=== PATIENT | male | born 1980 | race Caucasian/White ===

== ENCOUNTER 2019-04-12 13:33 | Inpatient (IN) | payer MEDICAID, SELFPAY ==
[2019-04-12 13:34] VITALS: BP 157/79; PULSE 90; RESP 18; TEMP 36.7; O2SAT 95; BMI 26.0
--- NOTE | 2019-04-12 13:34 | ED_ITS ---
Entered by Leslie Rea, acting as scribe for Joya Cedillo MD HPI - Psych General: Chief Complaint: Psychiatric Symptoms Stated Complaint: SI THOUGHTS Time Seen by Provider: 04/12/19 13:33 Source: patient and EMS Mode of arrival: EMS Limitations: no limitations History of Present Illness: HPI Narrative: 38 yo male presents with depression and SI thoughts. pt states this started a few days ago. pt states 2 weeks he layed his mother to rest. pt had a recent divorce. pt states he had a rope this morning planned to hang himself but realized he needed help for his children. pt states he has not been eating due to the stress. pt states nothing make this better. pt states he has been off his medications and never went back on them. complaint: suicidal ideation and feels depressed Onset (ago): day(s) Duration: constant and getting worse History of same: Yes Relieving factors: none Exacerbating factors: other (stress, family problems) Context: significant life stressor and other (out of medications) Associated psychiatric symptoms: depression and suicidal ideation Associated symptoms: Reports depression and suicidal ideation Treatments prior to arrival: none If self harm: admits thoughts of self harm and has plan (hang himself) Review of Systems General: Reports: 10 or more systems reviewed and unremarkable except in HPI and below Const: Denies: fever or chills Eyes: Denies: change in vision ENMT: Denies: throat pain Card: Denies: chest pain Resp: Denies: shortness of breath GI: Denies: abdominal pain, nausea, vomiting or change in bowel habits Musc: Denies: muscle weakness Skin/Breast: Denies: rash Neuro: Denies: headache Psych: Reports: depression and suicidal ideation Endo: Denies: excessive urination Bonifacio/Lymph: Denies: easy bruising or easy bleeding All/Imm: Denies: hives PFSH ED PFSH: Social History Smoking and tobacco status: current every day smoker Physical Exam Const: COMMON NORMALS: no apparent distress, oriented x3, alert and well nourished HENMT: COMMON NORMALS: normocephalic and external nose normal HEAD & SCALP: normocephalic NOSE: external nose normal MOUTH: no trismus Eye: COMMON NORMALS: EOMs intact bilaterally and conjunctivae normal CONJUNCTIVA: Yes conjunctivae normal Neck/C-Spine: COMMON NORMALS: full ROM, no lymphadenopathy and supple CERVICAL SPINE: Yes cervical ROM normal Lymph: LYMPHATIC: no lymphadenopathy noted Resp: COMMON NORMALS: normal respiratory effort, no retractions, no use of accessory muscles and clear to auscultation bilaterally EFFORT & INSPECTION: Yes able to speak in complete sentences AUSCULTATION: clear to auscultation bilaterally Cardio: COMMON NORMALS: regular rate and regular rhythm RATE: regular rate RHYTHM: regular rhythm GI: COMMON NORMALS: normal to inspection, nondistended, normoactive bowel sounds, soft to palpation, non-tender and no masses INSPECTION: Yes normal to inspection AUSCULTATION: Yes normoactive bowel sounds PALPATION: Yes soft, No guarding and No rigid Back/Pelvis: OTHER: Normal range of motion Extremity: GENERAL: Yes normal exam except as noted Neuro: COMMON NORMALS: oriented x3 and CN's II-XII intact bilaterally SENSORIUM/ORIENTATION: Yes alert SPEECH: speech normal Skin: COMMON NORMALS: no rashes or lesions noted GENERAL SKIN EXAM: no rashes or lesions noted MDM - Psych MDM Narrative: Medical decision making narrative: 38-year-old male with suicidal ideation and recent loss of his mother 2 weeks ago. Voluntarily once hospitalization plan was to hang himself. He is medically stable. Discussed with Dr. Amaral who accepts patient admission to the Neuropsych Unit. Lab Data: Attestation: I reviewed the patient's lab results. Labs: Lab Results 04/12/19 04/12/19 04/12/19 Range/Units 13:58 14:05 14:05 WBC 6.8 (4.0-10.0) 10^3/ uL RBC 4.87 (4.1-5.3) 10^6/u L Hgb 14.0 (11.7-16.6) g/dL Hct 41.9 L (42.0-52.0) % MCV 86.0 (80-94) fL MCH 28.7 (28.0-34.0) pg MCHC 33.4 (30.0-36.0) g/dL RDW 12.5 (12.1-15.1) % Plt Count 322 (130-400) 10^3/c mm MPV 8.8 (7.4-10.4) fL Neut % (Auto) 63.1 % Lymph % (Auto) 24.1 % [place] % (Auto) 8.7 % Eos % (Auto) 3.2 % Baso % (Auto) 0.6 % Neut # (Auto) 4.3 (1.8-7.7) 10^3/u L Lymph # (Auto) 1.6 (0.8-4.8) 10^3/u L [place] # (Auto) 0.6 (0.2-0.9) 10^3/u L Eos # (Auto) 0.2 (0.0-0.8) 10^3/u L Baso # (Auto) 0.0 (0.0-0.1) 10^3/u L Nucleated RBC % (a uto) 0 % Nucleated RBCs # 0.0 /100WBC Sodium 138 (136-145) mmol/L Potassium 4.1 (3.5-5.1) mmol/L Chloride 99 (98-107) mmol/L Carbon Dioxide 28 (22-29) mmol/L Anion Gap 15.1 (5-19) BUN 16 (6-20) mg/dL Creatinine 1.1 (0.7-1.2) mg/dL GFR Calculation 74.1 L (90-130) mL/min Glucose 80 (65-115) mg/dL Calcium 10.0 (8.5-10.5) mg/dL Total Bilirubin 1.4 H (0.15-1.2) mg/dL AST 20 (0-40) U/L ALT 19 (0-41) U/L Alkaline Phosphata se 96 (40-130) IU/L Total Protein 7.3 (6.6-8.7) g/dL Albumin 4.7 (3.5-5.2) g/dL Globulin 2.6 (1.3-4.6) g/dL Urine Opiates Scre en Negative (Negative) ng/mL Ur Barbiturates Sc reen Negative (Negative) ng/mL Ur Phencyclidine S crn Negative (Negative) ng/mL Ur Amphetamines Sc reen Positive H (Negative) ng/mL U Benzodiazepines Scrn Negative (Negative) ng/mL Urine Cocaine Scre en Negative (Negative) ng/mL U Marijuana (THC) Screen Positive H (Negative) ng/mL Ethyl Alcohol < 10 (0-10) mg/dL Discharge Plan Discharge Condition: Stable Prescriptions: No Action Celexa 40 mg Tablet 40 mg PO DAILY RF: 0 prazosin 1 mg Capsule 1 mg PO QPM RF: 0 clonazepam 0.5 mg Tablet 0.5 mg PO TID PRN (Reason: Anxiety) RF: 0 Depakote ER 500 mg Tablet Extended Release 24 Hr 500 mg PO DAILY RF: 0 Coding Level of Care Code ED [facility] Agent for Chg Fwd Exam Comprehensive The documentation recorded by the Álvaro hadley Bridget Annette, accurately reflects the service I personally performed and the decisions made by Mamadou seth Megan, MD Apr 12, 2019 13:33
[2019-04-12 13:56] VITALS: O2SAT 100
[2019-04-12] MEDS: LORazepam 1 mg Tablet PO (14:02)
[2019-04-12 14:16] LABS: Basophils % 0.6 %; Eosinophils # 0.2 10^3/uL (0.0-0.8); Eosinophils % 3.2 %; Hematocrit 41.9 % (42.0-52.0); Lymphocytes # 1.6 10^3/uL (0.8-4.8); Lymphocytes % 24.1 %; Mean Corpuscular HGB Conc 33.4 g/dL (30.0-36.0); Mean Corpuscular Hemoglobin 28.7 pg (28.0-34.0); Mean Platelet Volume 8.8 fL (7.4-10.4); Monocytes # 0.6 10^3/uL (0.2-0.9); Monocytes % 8.7 %; Neutrophils # 4.3 10^3/uL (1.8-7.7); Neutrophils % 63.1 %; Nucleated Red Blood Cells % 0 %; Platelet Count 322 10^3/cmm (130-400); Red Blood Count 4.87 10^6/uL (4.1-5.3); Red Cell Distribution Width 12.5 % (12.1-15.1); White Blood Count 6.8 10^3/uL (4.0-10.0)
[2019-04-12 14:43] LABS: Barbiturates Screen Urine Negative (Negative); Benzodiazepines Screen Urine Negative (Negative); Cocaine Screen Urine Negative (Negative); Opiate Screen Urine Negative (Negative); PCP Screen Urine Negative (Negative); THC Screen Urine Positive (Negative)
[2019-04-12 14:43] LABS: Alanine Aminotransferase 19 U/L (0-41); Albumin Level 4.7 g/dL (3.5-5.2); Alkaline Phosphatase 96 IU/L (40-130); Anion Gap 15.1 (5-19); Aspartate Amino Transferase 20 U/L (0-40); Blood Urea Nitrogen 16 mg/dL (6-20); Carbon Dioxide 28 mmol/L (22-29); Chloride 99 mmol/L (98-107); Creatinine Clr Calc Pharmacy 99.8848; Globulin 2.6 g/dL (1.3-4.6); Glomerular Filtration Rate 74.1 mL/min (90-130); Glucose 80 mg/dL (65-115); Potassium 4.1 mmol/L (3.5-5.1); Sodium 138 mmol/L (136-145); Total Bilirubin 1.4 mg/dL (0.15-1.2); Total Protein 7.3 g/dL (6.6-8.7)
[2019-04-12 14:44] LABS: Alcohol Level < 10 mg/dL (0-10)
[2019-04-12 14:59] LABS: Amphetamines Screen Urine Positive (Negative)
[2019-04-12 18:21] VITALS: BP 145/88; PULSE 85; RESP 17; O2SAT 97
[2019-04-12 18:43] VITALS: BP 130/79; PULSE 86; RESP 17; TEMP 36.8; O2SAT 95
--- NOTE | 2019-04-12 21:06 | PC.NURSE ---
HOME MEDS [PT HAS NOT BEEN TAKING HOME MEDS. PER DR. NUNEZ HE IS NOT GOING TO RESTART THOSE MEDS TONIGHT. HE IS GOING TO LET DR. HUMPHREY DECIDE WHAT TO DO.
[2019-04-12 21:18] VITALS: BP 137/77; PULSE 85; RESP 17; TEMP 36.8; O2SAT 98
[2019-04-13 06:00] VITALS: BP 105/69; PULSE 75; RESP 16; TEMP 36.8; O2SAT 97
[2019-04-13] MEDS: LORazepam 1 mg Tablet PO (10:08)
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
[2019-04-13 14:00] VITALS: BP 118/77; PULSE 73; RESP 18; TEMP 36.7; O2SAT 97
[2019-04-13] MEDS: citalopram 20 mg Tablet PO (14:22)
[2019-04-13] MEDS: CLONazepam 0.5 mg Tablet PO (14:46)
--- NOTE | 2019-04-13 14:46 | PC.NURSE ---
Addendum entered by Alexandrea Rao LPN 04/13/19 15:32: MEDICATION EFFECTIVE. PATIENT IS LYING IN BED RESTING. RESPIRATIONS EVEN AND UNLABORED. Original Note: PRN KLONOPIN KLONOPIN 0.5MG PO PER PT C/O ANXIETY. WILL CONTINUE TO MONITOR FOR MEDICATION EFFECTIVENESS.
[2019-04-13] MEDS: prazosin 1 mg Capsule PO (20:41)
[2019-04-13] MEDS: divalproex ER 500 mg Tablet (24H) PO (20:41)
[2019-04-13 21:58] VITALS: BP 109/67; PULSE 84; RESP 17; TEMP 36.8; O2SAT 96
[2019-04-14 06:00] VITALS: BP 108/71; PULSE 70; RESP 16; TEMP 36.7; O2SAT 96
[2019-04-14] MEDS: CLONazepam 0.5 mg Tablet PO ×2 (07:49→15:50)
--- NOTE | 2019-04-14 07:49 | PC.NURSE ---
PRN KLONOPIN KLONOPIN 0.5MG PO PER PATIEN C/O ANXIETY. WILL CONTINUE TO MONITOR FOR MEDICATION EFFECTIVENESS.
[2019-04-14] MEDS: citalopram 20 mg Tablet PO (08:01)
[2019-04-14] MEDS: nicotine 2 mg Gum BUCCAL (08:30)
--- NOTE | 2019-04-14 09:00 | PC.NURSE ---
PRN KLONOPIN FOLLOW UP MEDICATION EFFECTIVE. NO FURTHER C/O ANXIETY. PATIENT SITTING IN THE DAYROOM TALKING WITH OTHER PATIENTS.
[2019-04-14 14:00] VITALS: BP 100/50; PULSE 74; RESP 18; TEMP 36.7; O2SAT 97
--- NOTE | 2019-04-14 14:54 | P.PN_ITS ---
Subjective NPU Subjective: Interval history: Paco presents today reporting that things are going a little bit better. Made an adjustment in the medication and he feels that that should be helpful. Being restarted on his medication he reports is made difference. We had discussion about this plan moving forward. Managed his challenges and where he is going to go. He has been making calls and attempting to create options. At this point he believes he has a possibility. We discussed a discharge for tomorrow in the event that he is able to get the arrangements together and adjust to the medication without incident. Mental Status Exam MSE Comments: This is a well-nourished well-developed white male with adequate dress grooming contact. No abnormal movements except for mild psychomotor ret ardation. Cooperative with exam in no acute distress. Speech was slightly decreased rate and volume. Mood described as a little better, affect congruent. Thought process organized. Thought content: Patient denied any suicidal or homicidal ideation, there were no delusions reported noted, he denied any auditory or visual hallucinations. Attention and concentration were intact and memory appeared reliable but none were formally tested. He is alert and oriented ?3. Insight and judgment are fair and improving. Vitals/I&O/Wt Last Vital Signs Temp 98.1 F 04/14/19 06:00 Pulse 70 04/14/19 06:00 Resp 16 04/14/19 06:00 BP 108/71 04/14/19 06:00 Pulse Ox 96 04/14/19 06:00 Data NPU : 04/12/19 14:05 04/12/19 14:05 A&P Additional A&P Information This is a 38-year-old white male with a long history of depression anxiety and recent bereavement who presents off this medication with recent suicidal thinking presenting with desire in getting his medication restarted. 1. Continue current medication. 2. Encourage individual, group and milieu therapy. 3. Continue every 15 minute checks for safety. 4. Assist in exploring resources that help with ID. (2) Major depressive disorder, recurrent severe without psychotic features: Involuntary Hold Information 96 Hour Hold: 96 Hour Involuntary Admission: No Attestations NPU Medical Necessity Statement*: Inpatient hospitalization is medically necessary and the clinically appropriate intervention at this time. We will continue medications and adjust as indicated. Likely length of stay 1-3 days. Coding Level of Care Code Acute Poacher Wringer Operator for Lenore Coleman
--- NOTE | 2019-04-14 15:51 | PC.NURSE ---
PRN KLONOPIN KLONOPIN 0.5 MG PO PER PATIENT C/O ANXIETY. WILL CONTINUE TO MONITOR FOR MEDICATION EFFECTIVENESS.
--- NOTE | 2019-04-14 17:00 | PC.NURSE ---
prn klonopin follow up medication effective. no further c/o anxiety.
[2019-04-14] MEDS: divalproex ER 500 mg Tablet (24H) PO (20:49)
[2019-04-14] MEDS: prazosin 1 mg Capsule PO (20:49)
[2019-04-14 21:43] VITALS: BP 95/56; PULSE 87; RESP 17; TEMP 36.8; O2SAT 96
[2019-04-15 06:00] VITALS: BP 138/88; PULSE 89; RESP 20; TEMP 36.8; O2SAT 94
[2019-04-15] MEDS: citalopram 20 mg Tablet PO (08:15)
[2019-04-15] MEDS: CLONazepam 0.5 mg Tablet PO (08:15)
--- NOTE | 2019-04-15 08:15 | PC.NURSE ---
PT REQUESTED PRN CLONAZEPAM FOR INCREASED ANXIETY. ADMINISTERED MEDICATION ORDERED. WILL CONT TO MONITOR AND FOLLOW UP NEEDED
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
[2019-04-15 13:39] VITALS: BP 138/88; PULSE 89; RESP 20; TEMP 36.8; O2SAT 94
== END 2019-04-15 14:11 | disposition home or self-care (01) | DRG 885 ==
LOC: ER 16:19 → NP 18:19
PROVIDERS: Emergency Provider Emergency Medicine
DX: F33.2 Major depressive disorder, recurrent severe without psychotic features (principal); Z63.4 Disappearance and death of family member; Z91.5 Personal history of self-harm; F17.210 Nicotine dependence, cigarettes, uncomplicated
CPT/HCPCS: 12345; 36415; 80053; 80306; 80307; 85025; 99284; 99285; A9270

== ENCOUNTER 2019-06-14 13:08 | Inpatient (IN) | payer MEDICAID, SELFPAY ==
[2019-06-14 13:12] VITALS: BP 124/53; PULSE 71; RESP 17; TEMP 36.8; O2SAT 98; BMI 26.0
[2019-06-14] MEDS: LORazepam 1 mg Tablet PO (13:45)
--- NOTE | 2019-06-14 13:45 | ED_ITS ---
HPI - Psych General: Chief Complaint: Psychiatric Symptoms Stated Complaint: MHE Time Seen by Provider: 06/14/19 13:19 Source: patient Mode of arrival: ambulatory Limitations: no limitations History of Present Illness: HPI Narrative: 38-year-old gentleman with a history of depression who presents to the emergency department with worsening depression and suicidal ideation. The patient states that he recently traveled about 2 weeks ago for vacation and he forgot his medications at that place, the medications include antidepressants and mood stabilizers. He was unable to retrieve them and his depression has been worsening. He is also undergoing a lot of social stressors including a custody bertrand for his children and he feels it is all weighing on him and he is unable to cope at this time. He is apparently very irritable and emotional. He is tearful and crying throughout my interview. He is having suicidal ideations and his plan is to hang himself. No homicidal ideations. He presents here requesting to be helped. MD complaint: suicidal ideation and feels depressed Onset (ago): week(s) (1) Duration: constant History of same: Yes Context: not taking psychiatric medications and significant life stressor Associated psychiatric symptoms: depression and suicidal ideation Treatments prior to arrival: none If self harm: admits thoughts of self harm and has plan Review of Systems General: Reports: 10 or more systems reviewed and unremarkable except in HPI and below Const: Denies: fever, chills or body aches Card: Denies: palpitations, irregular heart rhythm, edema or swelling of feet/ankles Resp: Denies: shortness of breath, productive cough or non-productive cough GI: Denies: abdominal pain, nausea or vomiting : Denies: flank pain, painful urination, urinary frequency, urinary urgency or urinary hesitancy Musc: Denies: neck pain, back pain or extremity swelling Skin/Breast: Denies: rash, itching or redness Neuro: Denies: headache, numbness in extremities or weakness in extremities Endo: Denies: excessive urination, excessive thirst or tired all the time PFS ED PFSH: Social History Smoking and tobacco status: current some day smoker Physical Exam Const: COMMON NORMALS: no apparent distress, average body habitus, oriented x3, no limitations, healthy appearing, alert and well nourished HENMT: COMMON NORMALS: normocephalic, head/scalp atraumatic and moist oral mucous membranes HEAD & SCALP: normocephalic and atraumatic Eye: COMMON NORMALS: PERRL, EOMs intact bilaterally, conjunctivae normal and no scleral icterus CONJUNCTIVA: Yes conjunctivae normal PUPIL: Yes PERRL Neck/C-Spine: COMMON NORMALS: full ROM, supple, no meningeal signs, no JVD and no carotid bruits Chest: COMMONS NORMALS: inspection of chest normal and palpation of chest normal Resp: COMMON NORMALS: normal respiratory effort, no retractions, no use of accessory muscles, clear to auscultation bilaterally and percussion normal AUSCULTATION: clear to auscultation bilaterally PERCUSSION: percussion normal Cardio: COMMON NORMALS: no JVD, regular rate, regular rhythm, S1 normal heart sound, S2 normal heart sound, no gallops, no clicks, no murmurs, no rub and peripheral pulses 2+ throughout RATE: regular rate RHYTHM: regular rhythm HEART SOUNDS: S1 normal and S2 normal PERIPHERAL PULSES: pulses 2+ througho ut GI: COMMON NORMALS: normal to inspection, nondistended, normoactive bowel sounds, soft to palpation, non-tender, no hepatosplenomegaly, no masses and no bruits PALPATION: Yes soft and Yes no hepatosplenomegaly : COMMON NORMALS: Yes no CVA tenderness BLADDER/KIDNEY EXAM: Yes no CVA tenderness Back/Pelvis: COMMON NORMALS: no CVA tenderness Extremity: COMMON NORMALS: normal to inspection, full ROM, normal capillary refill, no calf tenderness and no pedal edema Neuro: COMMON NORMALS: oriented x3 SENSORIUM/ORIENTATION: Yes alert MENINGEAL SIGNS: Yes no meningeal signs Psych: COMMON NORMALS: mental status grossly normal and denies homicidal ideation APPEARANCE: Yes grossly normal ATTITUDE: Yes calm ACTIVITY/MOTOR BEHAVIOR: Yes psychomotor slowing SPEECH: Yes slow MOOD & AFFECT: Yes depressed mood and Yes tearful Skin: COMMON NORMALS: no rashes or lesions noted, no wounds, skin turgor normal, no jaundice, no petechiae and no mottling GENERAL SKIN EXAM: no rashes or lesions noted and turgor normal MDM - Psych MDM Narrative: Medical decision making narrative: 38-year-old gentleman with a history of depression who presents to the emergency department with complaints of suicidal ideation and worsening depression. He was medically cleared and is admitted to the neuropsychiatric unit for further evaluation and management. Lab Data: Labs: Lab Results 06/14/19 06/14/19 06/14/19 Range/Units 13:28 13:37 13:37 WBC 6.1 (4.0-10.0) 10^3/ uL RBC 4.84 (4.1-5.3) 10^6/u L Hgb 14.1 (11.7-16.6) g/dL Hct 42.8 (42.0-52.0) % MCV 88.4 (80-94) fL MCH 29.1 (28.0-34.0) pg MCHC 32.9 (30.0-36.0) g/dL RDW 12.2 (12.1-15.1) % Plt Count 331 (130-400) 10^3/c mm MPV 9.0 (7.4-10.4) fL Neut % (Auto) 58.0 % Lymph % (Auto) 29.9 % [place] % (Auto) 8.2 % Eos % (Auto) 3.0 % Baso % (Auto) 0.7 % Neut # (Auto) 3.5 (1.8-7.7) 10^3/u L Lymph # (Auto) 1.8 (0.8-4.8) 10^3/u L [place] # (Auto) 0.5 (0.2-0.9) 10^3/u L Eos # (Auto) 0.2 (0.0-0.8) 10^3/u L Baso # (Auto) 0.0 (0.0-0.1) 10^3/u L Nucleated RBC % (a uto) 0 % Nucleated RBCs # 0.0 /100WBC Sodium 138 (136-145) mmol/L Potassium 4.3 (3.5-5.1) mmol/L Chloride 100 (98-107) mmol/L Carbon Dioxide 31 H (22-29) mmol/L Anion Gap 11.3 (5-19) BUN 11 (6-20) mg/dL Creatinine 1.1 (0.7-1.2) mg/dL GFR Calculation 74.1 L (90-130) mL/min Glucose 95 (65-115) mg/dL Calculated Osmolal ity 282 L (285-295) mOsm/k g Calcium 9.7 (8.5-10.5) mg/dL Total Bilirubin 0.7 (0.15-1.2) mg/dL AST 16 (0-40) U/L ALT 13 (0-41) U/L Alkaline Phosphata se 76 (40-130) IU/L Total Protein 7.0 (6.6-8.7) g/dL Albumin 4.3 (3.5-5.2) g/dL Globulin 2.7 (1.3-4.6) g/dL TSH 0.84 (0.27-4.20) uIU/ mL Urine Color (Yellow) Urine Appearance (CLEAR) Urine pH (5-7) Ur Specific Gravit y (1.005-1.030) Urine Protein (Negative) Urine Glucose (UA) (Normal) Urine Ketones (Negative) Urine Blood (Negative) Urine Nitrate (Negative) Urine Bilirubin (NEGATIVE) Urine Urobilinogen (Negative) mg/dL Ur Leukocyte Mary ase (Negative) Salicylates < 0.3 L (3-10) mg/dL Urine Opiates Scre en Negative (Negative) ng/mL Acetaminophen < 5.0 L (10-30) ug/mL Ur Barbiturates Sc reen Negative (Negative) ng/mL Ur Phencyclidine S crn Negative (Negative) ng/mL Ur Amphetamines Sc reen Positive H (Negative) ng/mL U Benzodiazepines Scrn Positive H (Negative) ng/mL Urine Cocaine Scre en Negative (Negative) ng/mL U Marijuana (THC) Screen Positive H (Negative) ng/mL Ethyl Alcohol < 10 (0-10) mg/dL 06/14/19 Range/Units 13:37 WBC (4.0-10.0) 10^3/ uL RBC (4.1-5.3) 10^6/u L Hgb (11.7-16.6) g/dL Hct (42.0-52.0) % MCV (80-94) fL MCH (28.0-34.0) pg MCHC (30.0-36.0) g/dL RDW (12.1-15.1) % Plt Count (130-400) 10^3/c mm MPV (7.4-10.4) fL Neut % (Auto) % Lymph % (Auto) % [place] % (Auto) % Eos % (Auto) % Baso % (Auto) % Neut # (Auto) (1.8-7.7) 10^3/u L Lymph # (Auto) (0.8-4.8) 10^3/u L [place] # (Auto) (0.2-0.9) 10^3/u L Eos # (Auto) (0.0-0.8) 10^3/u L Baso # (Auto) (0.0-0.1) 10^3/u L Nucleated RBC % (a uto) % Nucleated RBCs # /100WBC Sodium (136-145) mmol/L Potassium (3.5-5.1) mmol/L Chloride (98-107) mmol/L Carbon Dioxide (22-29) mmol/L Anion Gap (5-19) BUN (6-20) mg/dL Creatinine (0.7-1.2) mg/dL GFR Calculation (90-130) mL/min Glucose (65-115) mg/dL Calculated Osmolal ity (285-295) mOsm/k g Calcium (8.5-10.5) mg/dL Total Bilirubin (0.15-1.2) mg/dL AST (0-40) U/L ALT (0-41) U/L Alkaline Phosphata se (40-130) IU/L Total Protein (6.6-8.7) g/dL Albumin (3.5-5.2) g/dL Globulin (1.3-4.6) g/dL TSH (0.27-4.20) uIU/ mL Urine Color Yellow (Yellow) Urine Appearance Clear (CLEAR) Urine pH 7 (5-7) Ur Specific Gravit y 1.015 (1.005-1.030) Urine Protein Neg (Negative) Urine Glucose (UA) Norm (Normal) Urine Ketones Negative (Negative) Urine Blood Neg (Negative) Urine Nitrate Negative (Negative) Urine Bilirubin Neg (NEGATIVE) Urine Urobilinogen Norm (Negative) mg/dL Ur Leukocyte Mary ase Negative (Negative) Salicylates (3-10) mg/dL Urine Opiates Scre en (Negative) ng/mL Acetaminophen (10-30) ug/mL Ur Barbiturates Sc reen (Negative) ng/mL Ur Phencyclidine S crn (Negative) ng/mL Ur Amphetamines Sc reen (Negative) ng/mL U Benzodiazepines Scrn (Negative) ng/mL Urine Cocaine Scre en (Negative) ng/mL U Marijuana (THC) Screen (Negative) ng/mL Ethyl Alcohol (0-10) mg/dL Discharge Plan Discharge Patient Disposition: Admitted As Inpatient Admit Provider: Seng Snowden Clinical Impression: Suicidal ideation, Major depressive disorder, recurrent severe without psychotic features Condition: Stable Interventions: ED Discharge Assessment Last Done: 06/14/19 17:00 ED Charges Last Done: 06/14/19 17:17 Discharge Date/Time: 06/14/19 17:00 Coding Level of Care Code 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
[2019-06-14 13:48] LABS: Basophils % 0.7 %; Eosinophils # 0.2 10^3/uL (0.0-0.8); Hematocrit 42.8 % (42.0-52.0); Hemoglobin 14.1 g/dL (11.7-16.6); Lymphocytes # 1.8 10^3/uL (0.8-4.8); Lymphocytes % 29.9 %; Mean Corpuscular HGB Conc 32.9 g/dL (30.0-36.0); Mean Corpuscular Hemoglobin 29.1 pg (28.0-34.0); Mean Corpuscular Volume 88.4 fL (80-94); Monocytes # 0.5 10^3/uL (0.2-0.9); Monocytes % 8.2 %; Neutrophils # 3.5 10^3/uL (1.8-7.7); Nucleated Red Blood Cells % 0 %; Platelet Count 331 10^3/cmm (130-400); Red Blood Count 4.84 10^6/uL (4.1-5.3); Red Cell Distribution Width 12.2 % (12.1-15.1); White Blood Count 6.1 10^3/uL (4.0-10.0)
[2019-06-14 14:22] LABS: Add Urine Microscopic? NO; Bilirubin Urine Neg (NEGATIVE); Blood Urine Neg (Negative); Glucose Urine UA Norm (Normal); Ketones Urine Negative (Negative); Leukocyte Esterase Urine Negative (Negative); Nitrate Urine Negative (Negative); Protein Urine Neg (Negative); Specific Gravity, Urine 1.015 (1.005-1.030); Urine Appearance Clear (CLEAR); Urine Color Yellow (Yellow); Urobilinogen Urine Norm (Negative); pH Urine 7 (5-7)
[2019-06-14 14:23] LABS: Alanine Aminotransferase 13 U/L (0-41); Albumin Level 4.3 g/dL (3.5-5.2); Alkaline Phosphatase 76 IU/L (40-130); Anion Gap 11.3 (5-19); Aspartate Amino Transferase 16 U/L (0-40); Blood Urea Nitrogen 11 mg/dL (6-20); Calcium 9.7 mg/dL (8.5-10.5); Carbon Dioxide 31 mmol/L (22-29); Chloride 100 mmol/L (98-107); Creatinine Clr Calc Pharmacy 99.8848; Globulin 2.7 g/dL (1.3-4.6); Glomerular Filtration Rate 74.1 mL/min (90-130); Glucose 95 mg/dL (65-115); Osmolality Calculated 282 mOsm/kg (285-295); Potassium 4.3 mmol/L (3.5-5.1); Sodium 138 mmol/L (136-145); Thyroid Stimulating Hormone 0.84 uIU/mL (0.27-4.20); Total Bilirubin 0.7 mg/dL (0.15-1.2)
[2019-06-14 14:38] LABS: Amphetamines Screen Urine Positive (Negative); Barbiturates Screen Urine Negative (Negative); Benzodiazepines Screen Urine Positive (Negative); Cocaine Screen Urine Negative (Negative); Opiate Screen Urine Negative (Negative); PCP Screen Urine Negative (Negative); THC Screen Urine Positive (Negative)
[2019-06-14 14:38] LABS: Salicylate < 0.3 mg/dL (3-10)
[2019-06-14 14:39] LABS: Acetaminophen < 5.0 ug/mL (10-30); Alcohol Level < 10 mg/dL (0-10)
--- NOTE | 2019-06-14 16:53 | NUR.SHIFT ---
Report called to Evelia BAKER in NPU and preparation being made to transfer patient to unit.
[2019-06-14 17:00] VITALS: BP 130/65; PULSE 75; O2SAT 99
[2019-06-14 17:05] VITALS: BP 114/71; PULSE 71; RESP 20; TEMP 36.9; O2SAT 98
[2019-06-14 21:47] VITALS: BP 115/80; PULSE 82; RESP 18; TEMP 36.8; O2SAT 97
[2019-06-15 06:00] VITALS: BP 97/58; PULSE 59; RESP 18; TEMP 36.6; O2SAT 97
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
[2019-06-15 12:44] VITALS: BP 97/58; PULSE 59; RESP 18; TEMP 36.6; O2SAT 97
== END 2019-06-15 15:56 | disposition home or self-care (01) | DRG 885 ==
LOC: ER 13:53 → NP 16:00
PROVIDERS: Admitting Provider Psychiatry & Neurology Psychiatry; Emergency Provider Family Medicine; Visit Provider Psychiatry & Neurology Psychiatry
DX: F33.2 Major depressive disorder, recurrent severe without psychotic features (principal); Z63.4 Disappearance and death of family member; F17.210 Nicotine dependence, cigarettes, uncomplicated; Z59.0 Homelessness
CPT/HCPCS: 12345; 36415; 80053; 80306; 80307; 81003; 84443; 85025; 99284

== ENCOUNTER 2019-06-14 13:08 | Emergency (ER) | payer MEDICAID, SELFPAY | END 2019-06-14 17:00 | disposition admitted as inpatient to this hospital (09) | LOC: ER 06-21 10:13 | PROVIDERS: Emergency Provider Family Medicine | DX: R45.851 Suicidal ideations (principal); F33.2 Major depressive disorder, recurrent severe without psychotic features; F17.210 Nicotine dependence, cigarettes, uncomplicated | CPT/HCPCS: 12345; 36415; 80053; 80306; 80307; 81003; 84443; 85025; 99284; 99285 ==

== ENCOUNTER 2019-09-27 09:59 | Inpatient (IN) | payer MEDICAID, SELFPAY ==
[2019-09-27] VITALS (7 sets, daily range): BP systolic 110–130; BP diastolic 70–83; PULSE 64–74; RESP 14–19; TEMP 36.7–36.8; O2SAT 97–98; BMI 25.7
--- NOTE | 2019-09-27 10:16 | W.ED.PSYCH ---
HPI - Psych General: Chief Complaint: Psychiatric Symptoms Stated Complaint: SI Time Seen by Provider: 09/27/19 10:07 History of Present Illness: HPI Narrative: Patient arrives via ambulance patient is been out of his medications for the last week said his mom is in ICU sons have some problems with him. Patient says he has a history of anxiety but he is got to the point where he just wants to take his life he wants to hang himself just cannot deal with anything anymore and feels very anxious and very down and is looking for some help MD complaint: suicidal ideation and feels depressed Onset (ago): day(s) Duration: constant and getting worse History of same: Yes Relieving factors: none Context: significant life stressor Associated symptoms: Reports depression and suicidal ideation Treatments prior to arrival: none If self harm: admits thoughts of self harm and has plan Review of Systems Const: Denies: fever(s), chills or body aches Eyes: Denies: change in vision or blurry vision ENMT: Denies: throat pain or nasal congestion Card: Denies: chest pain or dyspnea on exertion Resp: Denies: dyspnea, productive cough or non-productive cough GI: Denies: abdominal pain, nausea or vomiting : Denies: difficulty urinating Musc: Denies: extremity pain Skin/Breast: Denies: rash Neuro: Denies: headache(s) Psych: Reports: depression and suicidal ideation Bonifacio/Lymph: Denies: easy bruising PFSH ED PFSH: Social History Smoking and tobacco status: current some day smoker Physical Exam Const: COMMON NORMALS: no acute distress, average body habitus and patient oriented x3 HENMT: COMMON NORMALS: normocephalic HEAD & SCALP: normal to inspection and normocephalic FACE & SINUS: normal facial exam Eye: COMMON NORMALS: conjunctivae normal GENERAL EYE: appearance normal, both eyes and all related structures CONJUNCTIVA: Yes conjunctivae normal Neck/C-Spine: COMMON NORMALS: no JVD Chest: COMMONS NORMALS: normal inspection of the chest Resp: COMMON NORMALS: normal respiratory effort and clear to auscultation bilaterally AUSCULTATION: clear to auscultation bilaterally Cardio: COMMON NORMALS: no JVD, regular rate and regular rhythm RATE: regular rate RHYTHM: regular rhythm GI: COMMON NORMALS: Normal to inspection, nondistended, normoactive bowel sounds present Extremity: COMMON NORMALS: normal to inspection and full ROM Neuro: COMMON NORMALS: patient oriented x3 Psych: COMMON NORMALS: Normal thought process present ATTITUDE: Yes agitated MOOD & AFFECT: Yes depressed mood and Yes anxious THOUGHT PROCESS: Normal thought process present THOUGHT CONTENT: Yes Normal thought content present MDM - Psych MDM Narrative: Medical decision making narrative: Dr. Amaral agrees accept patient Neuropsych Unit Discharge Plan Discharge Prescriptions: No Action ranitidine HCl [Zantac] 150 mg Tablet 150 mg PO DAILY RF: 0 clonazepam 0.5 mg Tablet 0.5 mg PO BID PRN (Reason: Anxiety) 30 Days Qty: 60 RF: 1 citalopram 40 mg tablet 40 mg PO DAILY 30 Days Qty: 30 RF: 1 prazosin 1 mg Capsule 1 mg PO BEDTIME 30 Days Qty: 30 RF: 1 divalproex 500 mg Tablet Extended Release 24 Hr 500 mg PO BEDTIME 30 Days Qty: 30 RF: 1 Coding Level of Care Code ED Plumbing Service Technician for Lenore Fwd Exam Comprehensive
[2019-09-27] MEDS: LORazepam 1 mg Tablet PO (10:35)
[2019-09-27 10:59] LABS: Basophils # 0.1 10^3/uL (0.0-0.1); Basophils % 0.8 %; Eosinophils # 0.2 10^3/uL (0.0-0.8); Eosinophils % 2.3 %; Hematocrit 41.1 % (42.0-52.0); Hemoglobin 13.4 g/dL (11.7-16.6); Lymphocytes # 1.7 10^3/uL (0.8-4.8); Lymphocytes % 23.7 %; Mean Corpuscular HGB Conc 32.6 g/dL (30.0-36.0); Mean Corpuscular Hemoglobin 29.4 pg (28.0-34.0); Mean Corpuscular Volume 90.1 fL (80-94); Mean Platelet Volume 8.8 fL (7.4-10.4); Monocytes # 0.5 10^3/uL (0.2-0.9); Monocytes % 6.4 %; Neutrophils # 4.89 10^3/uL (1.8-7.7); Neutrophils % 66.5 %; Nucleated Red Blood Cells % 0 %; Platelet Count 297 10^3/cmm (130-400); Red Blood Count 4.56 10^6/uL (4.1-5.3); Red Cell Distribution Width 12.7 % (12.1-15.1); White Blood Count 7.4 10^3/uL (4.0-10.0)
[2019-09-27 11:16] LABS: Add Urine Microscopic? YES; Bilirubin Urine Neg (NEGATIVE); Blood Urine Neg (Negative); Glucose Urine UA Norm (Normal); Ketones Urine Negative (Negative); Leukocyte Esterase Urine Negative (Negative); Nitrate Urine Negative (Negative); Protein Urine Neg (Negative); Sulfosalicylic Acid Urine Negative (Negative); Urine Appearance Cloudy (CLEAR); Urine Color Yellow (Yellow); Urobilinogen Urine Norm (Negative); pH Urine 8 (5-7)
[2019-09-27 11:17] LABS: Anion Gap 8.3 (5-19); Blood Urea Nitrogen 7 mg/dL (6-20); Calcium 8.8 mg/dL (8.5-10.5); Carbon Dioxide 31 mmol/L (22-29); Chloride 103 mmol/L (98-107); Glomerular Filtration Rate 67.1 mL/min (90-130); Glucose 98 mg/dL (65-115); Osmolality Calculated 282 mOsm/kg (285-295); Potassium 4.3 mmol/L (3.5-5.1); Sodium 138 mmol/L (136-145)
[2019-09-27 11:17] LABS: Add Urine Culture? No; Amorphous Sediment Urine 3+; Bacteria Urine TRACE; Squamous Epithelial Cell Urine 0-4 (0-5)
[2019-09-27 11:18] LABS: Acetaminophen < 5.0 ug/mL (10-30); Salicylate < 0.3 mg/dL (3-10)
[2019-09-27 11:44] LABS: Amphetamines Screen Urine Negative (Negative); Barbiturates Screen Urine Negative (Negative); Benzodiazepines Screen Urine Positive (Negative); Cocaine Screen Urine Negative (Negative); Opiate Screen Urine Negative (Negative); PCP Screen Urine Negative (Negative); THC Screen Urine Positive (Negative)
[2019-09-27] MEDS: CLONazepam 0.5 mg Tablet PO (21:00)
[2019-09-27] MEDS: prazosin 1 mg Capsule PO (21:01)
[2019-09-27] MEDS: hyDROXYzine 25 mg Capsule 50 MG PO (21:01)
[2019-09-27] MEDS: trazodone 50 mg Tablet PO (21:01)
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
[2019-09-28 06:00] VITALS: BP 106/67; PULSE 68; RESP 20; TEMP 36.4; O2SAT 97
[2019-09-28] MEDS: OLANZapine 5 mg ODT PO ×2 (09:15→16:27)
--- NOTE | 2019-09-28 09:16 | PC.NURSE ---
PRN Zyprexa Zydis 5 MG PO given for anxiety
--- NOTE | 2019-09-28 12:52 | PC.NURSE ---
Patient is not as anxious since receiving Zyprexa Zydis this morning. He is easy to talk to but stays in his room most of the time.
--- NOTE | 2019-09-28 13:53 | PM.NPN ---
Subjective NPU Subjective: Interval history: Paco presents today known to this technical proposal writer from previous hospitalizations, the last of which was in May of this year. He presents reporting suicidality and dealing with recent deaths, recent addictive behavior by a child and relationship issues. His mother is reportedly in the ICU and he endorses that his mindset was that the answer to the stress was for him to hang himself. He was seen by Dr. Amaral yesterday and his medications were restarted. He denies any problems with the Prazosin and Dr. Amaral did give him access to Klonopin as needed. We discussed the risks, benefits, and alternatives of restarting his Celexa and he said he needed to think about that, and that we would consider doing that versus switching to a new one by the morning. We discussed concerns about the fact that the Klonopin that is being taken and is being restarted, but that the medications are more appropriate for long-term treatment of anxiety are not on the table. He understood and agreed to proceed as is documented in this note. Mental Status Exam MSE Comments: This is a well-nourished, well-developed, white male, with adequate grooming, and eye contact in hospital scrubs. Cooperative with exam in mild distress. Speech was decreased rate and volume. Mood described as depressed; affect congruent. Thought process, organized. Thought content: patient did endorse suicidality. There were no delusions reported or noted, patient denied any auditory or visual hallucinations. Attention, concentration, and memory appeared intact but were not formally tested. Alert and oriented times three. Insight and judgment are limited, and impulse control is limited. Vitals/I&O/Wt Last Vital Signs Temp 98.7 F 09/28/19 21:53 Pulse 58 L 09/28/19 21:53 Resp 16 09/28/19 21:53 BP 108/60 09/28/19 21:53 Pulse Ox 96 09/28/19 21:53 Weight last 48 hrs Weight 83.915 kg Weight 83.915 kg Data NPU : 09/27/19 10:50 09/27/19 10:50 A&P Assessment and plan (1) Major depressive disorder, recurrent severe without psychotic features: Status: Acute (2) Bereavement: Status: Acute Additional A&P Information This is a 38 year old, white male, with long history of depression, anxiety, and addiction, who presented this time with no methamphetamine in his system, but did have marijuana, as he generally does, who presents endorsing a need to get stabilized in his thinking due to suicidal thoughts with a plan. Continue current medications. We will start some SSRI or antidepressant by the morning. Encourage individual, group, and milieu therapy. Continue q-15 minute checks for safety. Recommend sober living treatment at the highest level of care to which the patient is willing to commit. Involuntary Hold Information 96 Hour Hold: 96 Hour Involuntary Admission: No Attestations NPU Medical Necessity Statement*: Inpatient hospitalization is medically necessary and the clinically appropriate intervention at this time. We will monitor medications, add medications, and make changes as indicated. Likely length of stay two to four days. Coding Level of Care Code Acute Retail Stock Clerk for Lenore Coleman Diagnoses Major depressive disorder, recurrent severe without psychotic features F33.2 Bereavement Z63.4
[2019-09-28 14:00] VITALS: BP 97/62; PULSE 62; RESP 20; TEMP 36.9; O2SAT 97
--- NOTE | 2019-09-28 14:49 | PC.NURSE ---
PRN'S GIVEN ATIVAN 2MG PO GIVEN FOR ANXIETY AND WITHDRAWL bENEDRYL 50MG PO GIVEN FOR ITCHING D/T REACTION
--- NOTE | 2019-09-28 16:28 | PC.NURSE ---
PRN Zyprexa Zydis 5MG PO given for anxiety
[2019-09-28] MEDS: trazodone 50 mg Tablet PO (21:35)
[2019-09-28] MEDS: prazosin 1 mg Capsule PO (21:35)
[2019-09-28] MEDS: CLONazepam 1 mg Tablet 0.5 MG PO (21:36)
[2019-09-28] MEDS: hyDROXYzine 25 mg Capsule 50 MG PO (21:36)
[2019-09-28 21:53] VITALS: BP 108/60; PULSE 58; RESP 16; TEMP 37.1; O2SAT 96
[2019-09-29 06:00] VITALS: BP 98/61; PULSE 81; RESP 20; TEMP 36.5; O2SAT 96
[2019-09-29] MEDS: OLANZapine 5 mg ODT PO (09:30)
--- NOTE | 2019-09-29 09:31 | PC.NURSE ---
PRN Zyprexa Zydis 5MG PO given for anxiety. Patient just spoke to his girlfriend whose health is declining in ICU. She just found out that she would need a pacemaker and that her kidneys are continuing to shut down. He is stressed about his mother and his girlfriend and his son continuing to act out.
--- NOTE | 2019-09-29 11:34 | PC.RESP ---
Smoking Cessation information sent to patient.
--- NOTE | 2019-09-29 13:48 | P.PN_ITS ---
Subjective NPU Subjective: Interval history: Paco presents today reporting that he had been off of his medication for a couple weeks after going to [place] and being with his mother. He did not get a chance to refill his medication which led to him being off of it. We discussed the risks benefits and alternatives of restarting the however he wasn't sure if he wanted to restart all of them. He agreed that he would think about it and we will get all restarted by tomorrow. I plan for discharge if he is stable on Wednesday. He is eating better and sleeping okay. Mental Status Exam MSE Comments: This is a well-nourished, well-developed, white male, with adequate grooming, and eye contact in hospital scrubs. Cooperative with exam in no acute distress. Speech was normal rate and decreased volume. Mood described as depressed; affect congruent. Thought process, organized. Thought content: p atient did endorse resolving suicidality. There were no delusions reported or noted, patient denied any auditory or visual hallucinations. Attention, concentration, and memory appeared intact but were not formally tested. He was alert and oriented times three. Insight and judgment are limited, and impulse control is limited. Vitals/I&O/Wt Last Vital Signs Temp 98.2 F 09/29/19 21:12 Pulse 63 09/29/19 21:12 Resp 20 H 09/29/19 21:12 BP 103/61 09/29/19 21:12 Pulse Ox 97 09/29/19 21:12 Data NPU : 09/27/19 10:50 09/27/19 10:50 A&P Additional A&P Information (1) Major depressive disorder, recurrent severe without psychotic features: (2) Bereavement: This is a 38 year old, white male, with long history of depression, anxiety, and addiction, who presented this time with no methamphetamine in his system, but did have marijuana, as he generally does, who presents endorsing a need to get stabilized in his thinking due to suicidal thoughts with a plan. Continue current medications. Planning on restarting the Celexa a plan to discharge on the previous dose of 40 but we will start 20 mg. We will explore his other medications as reconsidered whether he was to continue with his full previous dosing. Encourage individual, group, and milieu therapy. Continue q-15 minute checks for safety. Recommend sober living treatment at the highest level of care to which the patient is willing to commit. Involuntary Hold Information 96 Hour Hold: 96 Hour Involuntary Admission: No Attestations NPU Medical Necessity Statement*: Inpatient hospitalization is medically necessary and the clinically appropriate intervention at this time. We will monitor medications, add medications, and make changes as indicated. Likely length of stay 1-3 days. Coding Level of Care Code Acute Service Coordinator Elderly Facility for Lenore Coleman
[2019-09-29 14:00] VITALS: BP 109/68; PULSE 75; RESP 20; TEMP 36.5; O2SAT 95
[2019-09-29] MEDS: hyDROXYzine 25 mg Capsule 50 MG PO (15:45)
--- NOTE | 2019-09-29 15:46 | PC.NURSE ---
PRN Visteril 50MG PO for anxiety. Patient got upset with another patient singing in the hallway and slammed his door. He is visibly upset. He recognized that he needed something for anxiety.
[2019-09-29] MEDS: trazodone 50 mg Tablet PO (21:00)
[2019-09-29] MEDS: prazosin 1 mg Capsule PO (21:00)
--- NOTE | 2019-09-29 21:03 | PC.NURSE ---
PRN TRAZODONE PT REQUESTING SLEEP AID. TRAZODONE 50MG PO ADMINISTERED. WILL MONITOR FOR MEDICATION EFFECTIVENESS.
[2019-09-29 21:12] VITALS: BP 103/61; PULSE 63; RESP 20; TEMP 36.8; O2SAT 97
[2019-09-30 06:00] VITALS: BP 112/74; PULSE 78; RESP 21; TEMP 36.9; O2SAT 98
[2019-09-30] MEDS: nicotine 2 mg Gum BUCCAL ×3 (10:53→17:04)
[2019-09-30] MEDS: citalopram 20 mg Tablet PO (10:53)
[2019-09-30] MEDS: CLONazepam 0.5 mg Tablet PO ×2 (10:56→21:01)
--- NOTE | 2019-09-30 10:56 | P.PN_ITS ---
Subjective NPU Subjective: Interval history: Paco presented today reporting that he is wanting to be fully restarted on his medication. I entered them all as his previous dose, however with the Celexa since it's been a couple of weeks we will give him up to maybe 7 days on the 20 mg before returning to his previous dosing. Otherwise he reports feeling a little better and agreed that discharge on Wednesday the sounding like a reasonable plan. He reports he is eating okay and getting some improvement in sleep. Though he is hopeful resuming the prazosin will help with his sleep difficulties. He continues to wrestle with challenges of other people in his life which is leading to some helpless feelings. However he is hopeful about outcomes for those individuals. Mental Status Exam MSE Comments: This is a well-nourished, well-developed, white male, with adequate grooming, and eye contact in hospital scrubs. Cooperative with exam in no acute distress. Speech was normal rate and volume. Mood described as a little better; affect congruent. Thought process, organized. Thought content: patient denied suicidal or homicidal ideations. There were no delusions reported or noted, patient denied any auditory or visual hallucinations. Attention, concentration, and memory appeared intact but were not formally tested. He was alert and oriented times three. Insight and judgment are limited, but improving, and impulse control is limited. Vitals/I&O/Wt Last Vital Signs Temp 98.5 F 09/30/19 06:00 Pulse 78 09/30/19 06:00 Resp 21 H 09/30/19 06:00 BP 112/74 09/30/19 06:00 Pulse Ox 98 09/30/19 06:00 Data NPU : 09/27/19 10:50 09/27/19 10:50 A&P Additional A&P Information (1) Major depressive disorder, recurrent severe without psychotic features: (2) Bereavement: This is a 38 year old, white male, with long history of depression, anxiety, and addiction, who presented this time with no methamphetamine in his system, but di d have marijuana, as he generally does, who presents endorsing a need to get stabilized in his thinking due to suicidal thoughts with a plan. Continue current medications. Restart the Celexa with a plan to discharge on the previous dose of 40.. We will make sure the Klonopin, Depakote and trazod one are restarted after identifying the date of his last follow-up and prescription. Encourage individual, group, and milieu therapy. Continue q-15 minute checks for safety. Recommend sober living treatment at the highest level of care to which the patient is willing to commit. Involuntary Hold Information 96 Hour Hold: 96 Hour Involuntary Admission: No Attestations NPU Medical Necessity Statement*: Inpatient hospitalization is medically necessary and the clinically appropriate intervention at this time. We will monitor medications, add medications, and make changes as indicated. Likely length of stay 1-2 days. Coding Level of Care Code Acute Buffet Waiter/Waitress for Lenore Coleman
[2019-09-30] MEDS: acetaminophen 325 mg Tablet 650 MG PO (13:27)
[2019-09-30 14:00] VITALS: BP 94/62; PULSE 65; RESP 20; TEMP 36.6; O2SAT 96
[2019-09-30] MEDS: hyDROXYzine 25 mg Capsule 50 MG PO (17:03)
[2019-09-30 19:44] VITALS: BP 104/63; PULSE 63; RESP 20; TEMP 36.7; O2SAT 97
[2019-09-30] MEDS: trazodone 50 mg Tablet PO (21:01)
[2019-09-30] MEDS: prazosin 1 mg Capsule 2 MG PO (21:01)
[2019-09-30] MEDS: divalproex ER 500 mg Tablet (24H) PO (21:02)
--- NOTE | 2019-09-30 21:03 | PC.NURSE ---
KLONOPIN & TRAZODONE PT REQUESTING ANXIETY MED AND SLEEP AID. ADMINISTERED KLONOPIN 0.5MG PO & TRAZODONE 50 MG PO. WILL MONITOR FOR MEDICATION EFFECTIVENESS.
[2019-10-01 06:00] VITALS: BP 109/69; PULSE 61; RESP 18; TEMP 36.6; O2SAT 96
[2019-10-01] MEDS: citalopram 20 mg Tablet PO (08:29)
[2019-10-01] MEDS: CLONazepam 0.5 mg Tablet PO ×2 (09:11→21:06)
--- NOTE | 2019-10-01 09:11 | PC.NURSE ---
Addendum entered by Lorri Howell LPN 10/01/19 11:19: PRN MED EFFECTIVE NO FURTHER C/O ANXIETY Original Note: PRN KLONOPIN 0.5 MG GIVEN PO PER PT C/O STATED ANXIETY
[2019-10-01] MEDS: nicotine 2 mg Gum BUCCAL ×4 (09:12→21:06)
--- NOTE | 2019-10-01 12:45 | PM.NPN ---
Subjective NPU Subjective: Interval history: Paco presented today reporting that he is doing okay with the resumption of his Celexa. We discussed a plan to increase the dose to 40 after discharge. He reports that he's feeling better and more optimistic about facing his issues outside of the hospital. He continues to report an openness to discharge tomorrow and that things are in order for that to occur. Mental Status Exam MSE Comments: This is a well-nourished, well-developed, white male, with adequate grooming, and eye contact in hospital scrubs. Cooperative with exam in no acute distress. Speech was normal rate and volume. Mood described as better; affect congruent. Thought process, organized. Thought content: patient denied suicidal or homicidal ideations. There were no delusions reported or noted, patient denied any auditory or visual hallucinations. Attention, concentration, and memory appeared intact but were not formally tested. He was alert and oriented times three. Insight and judgment are improving, and impulse control is limited, but improving. Vitals/I&O/Wt Last Vital Signs Temp 97.8 F 10/01/19 06:00 Pulse 61 10/01/19 06:00 Resp 18 10/01/19 06:00 BP 121/70 10/01/19 06:00 Pulse Ox 96 10/01/19 06:00 10/01/19 10/01/19 10/02/19 14:59 22:59 06:59 Intake Total 600 / 600 Balance 600 / 600 Weight last 48 hrs Weight 89.358 kg Data NPU : 09/27/19 10:50 09/27/19 10:50 A&P Additional A&P Information (1) Major depressive disorder, recurrent severe without psychotic features: (2) Bereavement: This is a 38 year old, white male, with long history of depression, anxiety, and addiction, who presented this time with no methamphetamine in his system, but did have marijuana, as he generally does, who presents endorsing a need to get stabilized in his thinking due to suicidal thoughts with a plan. Continue current medications. Encourage individual, group, and milieu therapy. Continue q-15 minute checks for safety. Recommend sober living treatment at the highest level of care to which the patient is willing to commit. Involuntary Hold Information 96 Hour Hold: 96 Hour Involuntary Admission: No Attestations NPU Medical Necessity Statement*: Inpatient hospitalization is medically necessary and the clinically appropriate intervention at this time. We will monitor medications, add medications, and make changes as indicated. Plan for discharge tomorrow.. Coding Level of Care Code Acute Char Filter Operator Helper for Lenore Coleman
[2019-10-01 14:00] VITALS: BP 121/70; PULSE 78; RESP 18; TEMP 37.2; O2SAT 97
[2019-10-01] MEDS: hyDROXYzine 25 mg Capsule 50 MG PO (15:50)
[2019-10-01] MEDS: acetaminophen 325 mg Tablet 650 MG PO (15:51)
--- NOTE | 2019-10-01 15:51 | PC.NURSE ---
PRN VISTARIL 50 MG GIVEN PO PER PT C/O STATED ANXIETY. NO OUTWARD S/S OF ANXIETY NOTED. PT IN DAY ROOM, WATCHING TV AND CONVERSING IN A CALM MANNER WITH OTHER PATIENTS ON THE UNIT.
[2019-10-01] MEDS: trazodone 50 mg Tablet PO ×2 (21:05→21:06)
[2019-10-01] MEDS: prazosin 1 mg Capsule 2 MG PO (21:05)
[2019-10-01] MEDS: divalproex ER 500 mg Tablet (24H) PO (21:06)
[2019-10-01 21:26] VITALS: BP 114/74; PULSE 69; RESP 20; TEMP 36.6; O2SAT 96
[2019-10-02 06:00] VITALS: BP 105/68; PULSE 62; RESP 20; TEMP 37.1; O2SAT 99
--- NOTE | 2019-10-02 06:51 | PM.NDC ---
Diagnoses at Discharge Discharge Diagnosis (1) Major depressive disorder, recurrent severe without psychotic features: Status: Acute (2) Bereavement: Status: Acute (3) Anxiety: Status: Acute Reason for Visit Reason for Visit: SI Brief History: History of Present Illness Paco Cota is a 38 year old male who has sustained a concatenation of misfortune which seldom happens within the span of one month. His fianc?e fell ill and is now in the ICU with failing kidneys. His mother is now in the ICU and she may not leave the hospital alive. In the meantime, his son has been experimenting with drugs. The patient caught him red-handed and he just lost it. He became so distraught he thought hanging in himself was a good idea. He came to the hospital seeking help. He reports nightmares about his father who in his arms as he vomited blood. He said he had been on prazosin, which was greatly helpful. He also is profoundly depressed. I suggested that he and Dr. Snowden would be able to work that out pharmacologically. He does not think the citalopram is working for him anymore. Review of Systems Narrative: Const: Denies: fever(s), chills or body aches Eyes: Denies: change in vision or blurry vision ENMT: Denies: throat pain or nasal congestion Card: Denies: chest pain or dyspnea on exertion Resp: Denies: dyspnea, productive cough or non-productive cough GI: Denies: abdominal pain, nausea or vomiting : Denies: difficulty urinating Musc: Denies: extremity pain Skin/Breast: Denies: rash Neuro: Denies: headache(s) Psych: Reports: depression and suicidal ideation Bonifacio/Lymph: Denies: easy bruising Meds NPU Home Medications Medication Instructions Recorded Confirmed Last Taken Type citalopram 40 mg PO DAILY 30 Days #30 tab 04/14/19 09/27/19 Unknown Rx clonazepam 0.5 mg PO BID PRN 30 Days #60 tab 04/14/19 09/27/19 09/25/19 Rx divalproex 500 mg PO BEDTIME 30 Days #30 tab 04/14/19 09/27/19 Unknown Rx prazosin 2 mg PO BEDTIME 09/27/19 09/27/19 Unknown History Allergies Allergy/AdvReac Type Severity Reaction Status Date / Time codeine Allergy Unknown Verified 09/27/19 11:33 strawberry Allergy Unknown Verified 09/27/19 11:33 [facility] NPU PFSH: Social History Smoking and tobacco status: current some day smoker Other Psychiatric History: Other Psychiatric History: Patient has been here several months ago. There is a question of substance abuse. Hospital Course Hospital Course The patient presented to the emergency room, as he has multiple times in the past, endorsing depression, anxiety, and inability to cope with his life. He reports that he has been out of medications because he was unable to get to the doctor, or the pharmacy, because his mom is in the ICU, his significant other is in the ICU, and his sons are having issues, and he just felt overwhelmed and wanted to kill himself. He reports his depression was out of control and he felt like he needed to be in the hospital. His Celexa was restarted at 20 mg with a plan to increase to 40 mg. We restated his Prazosin, and he was still on his low dose Klonopin. He showed mild to moderate improvement during his stay. During the hospitalization, the patient had routine laboratory studies which were within normal limits, except for a few outliers. Additionally, the patient had a general medical evaluation which was within normal limits and revealed no new acute processes. Discharge Summary At the time of discharge the patient denied all lethality, was absent psychosis, and mood and anxiety were well managed. The patient endorsed a plan to avoid all drugs of abuse and to follow-up with outpatient services, as recommended. The patient was evaluated and deemed to be absent credible lethality, and had achieved the maximum benefit from an inpatient hospitalization, and so he was discharged. Involuntary Hold Information 96 Hour Hold: 96 Hour Involuntary Admission: No Mental Status Exam MSE Comments: This is a well-nourished, well-developed, white male, with adequate grooming, and eye contact in hospital scrubs. Cooperative with exam in no acute distress. Speech was normal rate and volume. Mood described as pretty good; affect congruent. Thought process, organized. Thought content: patient denied suicidal or homicidal ideations. There were no delusions reported or noted, patient denied any auditory or visual hallucinations. Attention, concentration, and memory appeared intact but were not formally tested. He was alert and oriented times three. Insight and judgment are fair, and impulse control is improving. Discharge Data Vitals: Last Vital Signs Temp 98.8 F 10/02/19 06:00 Pulse 62 10/02/19 06:00 Resp 20 H 10/02/19 06:00 BP 105/68 10/02/19 06:00 Pulse Ox 99 10/02/19 06:00 Discharge Plan Discharge Patient Disposition: Home Condition: Stable Prescriptions: New trazodone 50 mg Tablet 50 mg PO BEDTIME PRN (Reason: Sleep) 30 Days Qty: 30 RF: 1 Continued citalopram 40 mg tablet 40 mg PO DAILY 30 Days Qty: 30 RF: 1 prazosin 1 mg capsule 2 mg PO BEDTIME 30 Days Qty: 30 RF: 1 clonazepam 0.5 mg Tablet 0.5 mg PO BID PRN (Reason: Anxiety) 30 Days Qty: 60 RF: 1 divalproex 500 mg Tablet Extended Release 24 Hr 500 mg PO BEDTIME 30 Days Qty: 30 RF: 1 Discharge Orders: Discharge Order (Routine); Ordered 10/02/19 Ordered By: Seng Snowden Referrals: [facility] [Outside] (Your intake paperwork was sent to [facility] [place]. They will call you to do a assessment over the phone. Then a psych evaluation will be scheduled. This will need to be done in person in [place]. The other visits should be able to be done in [facility] with the exception of the yearly psych evaluation.) Discharge Diet: Regular Discharge Activity: Resume usual activity Patient Instructions: Depression, Trazodone (By mouth), Anxiety (DC) Discharge Date/Time: 10/02/19 14:35 Discharge Attestations NPU Time Spent in Discharge Care*: less than 30 min Specific Discharge Activities: Specific discharge activities: educating patient, discussing with hospice case manager/social workers/dc planners, documenting/other paperwork and evaluating patient/reviewing data Time Spent in Smoking Cessation: Time spent discussing smoking cessation with patient: 3 to 10 minutes Coding Level of Care Code Acute Armor Reconnaissance Specialist for [facility] Fwd Diagnoses Major depressive disorder, recurrent severe without psychotic features F33.2 Bereavement Z63.4 Anxiety F41.9
[2019-10-02] MEDS: citalopram 20 mg Tablet PO (08:19)
[2019-10-02] MEDS: nicotine 2 mg Gum BUCCAL ×2 (08:20→11:20)
[2019-10-02] MEDS: hyDROXYzine 25 mg Capsule 50 MG PO (09:07)
--- NOTE | 2019-10-02 09:07 | PC.NURSE ---
PRN VISTARIL 50 MG GIVEN PO PER PT C/O STATED ANXIETY. NO OUTWARD S/S OF ANXIETY NOTED. WILL CONT TO MONITOR.
[2019-10-02 11:02] VITALS: BP 105/68; PULSE 62; RESP 20; TEMP 37.1; O2SAT 99
[2019-10-02] MEDS: CLONazepam 0.5 mg Tablet PO (13:12)
== END 2019-10-02 14:35 | disposition home or self-care (01) | DRG 885 ==
LOC: ER 10:54 → NP 11:07
PROVIDERS: Nurse Practitioner Family; Visit Provider Psychiatry & Neurology Psychiatry
DX: F33.2 Major depressive disorder, recurrent severe without psychotic features (principal); R45.851 Suicidal ideations; F17.210 Nicotine dependence, cigarettes, uncomplicated; Z63.4 Disappearance and death of family member
CPT/HCPCS: 12345; 36415; 80048; 80306; 80307; 81001; 85025; 99284

== ENCOUNTER 2020-09-08 11:57 | Inpatient (IN) | payer MEDICAID, SELFPAY ==
[2020-09-08 12:06] VITALS: BP 132/79; PULSE 67; RESP 16; TEMP 36.7; O2SAT 96; BMI 29.0
[2020-09-08 12:31] LABS: Basophils # 0.1 10^3/uL (0.0-0.1); Eosinophils # 0.2 10^3/uL (0.0-0.8); Hematocrit 43.7 % (42.0-52.0); Hemoglobin 15.1 g/dL (11.7-16.6); Lymphocytes # 2.1 10^3/uL (0.8-4.8); Lymphocytes % 23.4 %; Mean Corpuscular HGB Conc 34.6 g/dL (30.0-36.0); Mean Corpuscular Volume 86.7 fL (80-94); Mean Platelet Volume 8.9 fL (7.4-10.4); Monocytes # 0.6 10^3/uL (0.2-0.9); Monocytes % 6.2 %; Neutrophils # 5.92 10^3/uL (1.8-7.7); Neutrophils % 67.2 %; Nucleated Red Blood Cells % 0 %; Platelet Count 388 10^3/cmm (130-400); Red Blood Count 5.04 10^6/uL (4.1-5.3); Red Cell Distribution Width 12.3 % (12.1-15.1); White Blood Count 8.8 10^3/uL (4.0-10.0)
[2020-09-08 12:39] LABS: Add Urine Microscopic? YES; Bilirubin Urine Neg (Negative); Blood Urine Neg (Negative); Glucose Urine UA Norm (Normal); Ketones Urine Negative (Negative); Leukocyte Esterase Urine Negative (Negative); Nitrate Urine Negative (Negative); Protein Urine Neg (Negative); Specific Gravity, Urine 1.015 (1.005-1.030); Sulfosalicylic Acid Urine Negative (Negative); Urine Appearance Hazy (CLEAR); Urine Color Yellow (Yellow); Urobilinogen Urine Norm (Negative); pH Urine 8 (5-7)
[2020-09-08 12:40] LABS: Amorphous Sediment Urine 2+ /hpf; Mucus Urine 1+ /hpf; WBC Urine RARE /hpf (0-5)
[2020-09-08 12:41] LABS: Add Urine Culture? No; Amphetamines Screen Urine Negative (Negative); Barbiturates Screen Urine Negative (Negative); Benzodiazepines Screen Urine Negative (Negative); Cocaine Screen Urine Negative (Negative); Opiate Screen Urine Negative (Negative); PCP Screen Urine Negative (Negative); THC Screen Urine Positive (Negative)
[2020-09-08 12:48] LABS: Alanine Aminotransferase 15 U/L (0-41); Albumin Level 4.2 g/dL (3.5-5.2); Alkaline Phosphatase 71 IU/L (40-130); Anion Gap 13.2 (5-19); Aspartate Amino Transferase 16 U/L (0-40); Blood Urea Nitrogen 11 mg/dL (6-20); Calcium 8.8 mg/dL (8.5-10.5); Carbon Dioxide 26 mmol/L (22-29); Chloride 103 mmol/L (98-107); Globulin 2.7 g/dL (1.3-4.6); Glomerular Filtration Rate 106.5 mL/min (90-130); Glucose 96 mg/dL (65-115); Osmolality Calculated 285 mOsm/kg (285-295); Potassium 4.2 mmol/L (3.5-5.1); Sodium 138 mmol/L (136-145); Total Bilirubin 0.5 mg/dL (0.15-1.2); Total Protein 6.9 g/dL (6.6-8.7)
[2020-09-08 12:49] LABS: Acetaminophen < 5.0 ug/mL (10-30); Alcohol Level < 10 mg/dL (0-10); Salicylate < 0.3 mg/dL (3-10)
[2020-09-08] MEDS: LORazepam 2 mg Tablet PO (12:58)
[2020-09-08 13:25] LABS: SARS Covid-2 Antigen Negative (Negative)
[2020-09-08 13:44] VITALS: BP 149/84; PULSE 83; RESP 18; TEMP 36.7; O2SAT 97
[2020-09-08 14:00] VITALS: BP 149/84; PULSE 83; RESP 18; TEMP 36.7
--- NOTE | 2020-09-08 14:56 | ED_ITS ---
HPI - Psych General: Chief Complaint: Psychiatric Symptoms Stated Complaint: SI/ OFF PSYCH MEDS Time Seen by Provider: 09/08/20 12:00 Source: patient and EMS Mode of arrival: EMS Limitations: no limitations History of Present Illness: HPI Narrative: This is a 39-year-old gentleman with a history of depression who presents to the emergency department with suicidal ideations. He has unfortunately undergone quite a bit of social stressors with his mother dying a few months ago and he states that his was also killed about 2 months ago. During the the patient states that he just lost it and something is broken in him. He does not have the desire to live anymore. He wants some help. He is very tearful in the emergency department. MD complaint: suicidal ideation Onset (ago): day(s) Duration: constant History of same: Yes Relieving factors: none Exacerbating factors: none Context: recent drug abuse Associated psychiatric symptoms: depression and suicidal ideation Associated symptoms: Reports depression and suicidal ideation; Deny auditory hallucinations, visual hallucinations, delusions, homicidal ideation or racing thoughts Treatments prior to arrival: none If self harm: admits thoughts of self harm Review of Systems General: Reports: 10 or more systems reviewed and unremarkable except in HPI and below Psych: Reports: depression and suicidal ideation; Denies: visual hallucinations, auditory hallucinations or homicidal ideation [facility] ED PFSH: Social History (Reviewed 09/08/20 @ 15:01 by Deirdre Huddleston [place], [facility] [place] Smoking and tobacco status: current some day smoker Physical Exam Const: COMMON NORMALS: no acute distress, average body habitus, patient oriented x3, no limitations, healthy appearing, alert and well nourished HENMT: COMMON NORMALS: normocephalic, atraumatic and moist oral mucous membranes HEAD & SCALP: normocephalic and atraumatic Neck/C-Spine: COMMON NORMALS: no meningeal signs and no JVD Resp: COMMON NORMALS: normal respiratory effort, No retractions, No use of accessory muscles, clear to auscultation bilaterally and percussion normal AUSCULTATION: clear to auscultation bilaterally PERCUSSION: percussion normal Cardio: COMMON NORMALS: no JVD, regular rate, regular rhythm, S1 normal heart sound present, S2 normal heart sound present, No gallops present (Cardio), No clicks present (Cardio), No murmurs present (Cardio), No rub (Cardio) and Peripheral pulses 2+ throughout RATE: regular rate RHYTHM: regular rhythm HEART SOUNDS: S1 normal heart sound present and S2 normal heart sound present PERIPHERAL PULSES: Peripheral pulses 2+ throughout GI: COMMON NORMALS: Normal to inspection, nondistended, normoactive bowel sounds present, Soft to palpation, non-tender, No hepatosplenomegaly present, no masses and no bruits PALPATION: Yes Soft to palpation and Yes No hepatosplenomegaly present Extremity: COMMON NORMALS: normal to inspection, full ROM, capillary refill normal, no calf tenderness and no pedal edema Neuro: COMMON NORMALS: patient oriented x3 SENSORIUM/ORIENTATION: Yes alert MENINGEAL SIGNS: Yes no meningeal signs Psych: THOUGHT CONTENT: No delusions Course Consultations: Consultation #1: Discussed the patient with Dr. Snowden, psychiatrist and he kindly accepted the patient to his service Time: 13:00 Vital Signs: Vital signs: Vital Signs Temperature 98.1 F 09/08/20 12:06 Pulse Rate 67 09/08/20 12:06 Respiratory Rate 16 09/08/20 12:06 Blood Pressure 132/79 09/08/20 12:06 Pulse Oximetry 96 09/08/20 12:06 MDM - Psych MDM Narrative: Medical decision making narrative: 39-year-old male who presents to the emergency department with suicidal ideation. He has had quite a bit of grief and emotional trauma within the last few months. His mother a few months ago and subsequently his was killed. He is therefore feeling s uicidal and is here because he wants some help. He is medically cleared and admitted to the neuropsychiatric unit for further evaluation and management. Medical Records: Attestation: I reviewed the patient's medical records. Lab Data: Attestation: I reviewed the patient's lab results. Labs: Lab Results 09/08/20 09/08/20 09/08/20 Range/Units 12:00 12:00 12:20 WBC 8.8 (4.0-10.0) 10^3/ uL RBC 5.04 (4.1-5.3) 10^6/u L Hgb 15.1 (11.7-16.6) g/dL Hct 43.7 (42.0-52.0) % MCV 86.7 (80-94) fL MCH 30.0 (28.0-34.0) pg MCHC 34.6 (30.0-36.0) g/dL RDW 12.3 (12.1-15.1) % Plt Count 388 (130-400) 10^3/c mm MPV 8.9 (7.4-10.4) fL Neut % (Auto) 67.2 % Lymph % (Auto) 23.4 % [place] % (Auto) 6.2 % Eos % (Auto) 2.0 % Baso % (Auto) 1.0 % Neut # (Auto) 5.92 (1.8-7.7) 10^3/u L Lymph # (Auto) 2.1 (0.8-4.8) 10^3/u L [place] # (Auto) 0.6 (0.2-0.9) 10^3/u L Eos # (Auto) 0.2 (0.0-0.8) 10^3/u L Baso # (Auto) 0.1 (0.0-0.1) 10^3/u L Nucleated RBC % (a uto) 0 % Nucleated RBCs # 0.0 /100WBC Sodium (136-145) mmol/L Potassium (3.5-5.1) mmol/L Chloride (98-107) mmol/L Carbon Dioxide (22-29) mmol/L Anion Gap (5-19) BUN (6-20) mg/dL Creatinine (0.7-1.2) mg/dL GFR Calculation (90-130) mL/min Glucose (65-115) mg/dL Calculated Osmolal ity (285-295) mOsm/k g Calcium (8.5-10.5) mg/dL Total Bilirubin (0.15-1.2) mg/dL AST (0-40) U/L ALT (0-41) U/L Alkaline Phosphata se (40-130) IU/L Total Protein (6.6-8.7) g/dL Albumin (3.5-5.2) g/dL Globulin (1.3-4.6) g/dL Urine Color Yellow (Yellow) Urine Appearance Hazy A (CLEAR) Urine pH 8 H (5-7) Ur Specific Gravit y 1.015 (1.005-1.030) Urine Protein Neg (Negative) Urine Glucose (UA) Norm (Normal) Urine Ketones Negative (Negative) Urine Blood Neg (Negative) Urine Nitrate Negative (Negative) Urine Bilirubin Neg (Negative) Prot Sulfosalicyli c Acd Negative (Negative) Urine Urobilinogen Norm (Negative) mg/dL Ur Leukocyte Mary ase Negative (Negative) Urine RBC None (0-2) /hpf Urine WBC Rare (0-5) /hpf Ur Squamous Epith Cells None (0-5) /hpf Amorphous Sediment 2+ /hpf Urine Bacteria None (NONE) /hpf Urine Mucus 1+ /hpf Salicylates (3-10) mg/dL Urine Opiates Scre en Negative (Negative) ng/mL Acetaminophen (10-30) ug/mL Ur Barbiturates Sc reen Negative (Negative) ng/mL Ur Phencyclidine S crn Negative (Negative) ng/mL Ur Amphetamines Sc reen Negative (Negative) ng/mL U Benzodiazepines Scrn Negative (Negative) ng/mL Urine Cocaine Scre en Negative (Negative) ng/mL U Marijuana (THC) Screen Positive H (Negative) ng/mL Ethyl Alcohol (0-10) mg/dL SARS-CoV-2 Ag (Rap id) (Negative) 09/08/20 09/08/20 Range/Units 12:20 12:51 WBC (4.0-10.0) 10^3/ uL RBC (4.1-5.3) 10^6/u L Hgb (11.7-16.6) g/dL Hct (42.0-52.0) % MCV (80-94) fL MCH (28.0-34.0) pg MCHC (30.0-36.0) g/dL RDW (12.1-15.1) % Plt Count (130-400) 10^3/c mm MPV (7.4-10.4) fL Neut % (Auto) % Lymph % (Auto) % [place] % (Auto) % Eos % (Auto) % Baso % (Auto) % Neut # (Auto) (1.8-7.7) 10^3/u L Lymph # (Auto) (0.8-4.8) 10^3/u L [place] # (Auto) (0.2-0.9) 10^3/u L Eos # (Auto) (0.0-0.8) 10^3/u L Baso # (Auto) (0.0-0.1) 10^3/u L Nucleated RBC % (a uto) % Nucleated RBCs # /100WBC Sodium 138 (136-145) mmol/L Potassium 4.2 (3.5-5.1) mmol/L Chloride 103 (98-107) mmol/L Carbon Dioxide 26 (22-29) mmol/L Anion Gap 13.2 (5-19) BUN 11 (6-20) mg/dL Creatinine 0.8 (0.7-1.2) mg/dL GFR Calculation 106.5 (90-130) mL/min Glucose 96 (65-115) mg/dL Calculated Osmolal ity 285 (285-295) mOsm/k g Calcium 8.8 (8.5-10.5) mg/dL Total Bilirubin 0.5 (0.15-1.2) mg/dL AST 16 (0-40) U/L ALT 15 (0-41) U/L Alkaline Phosphata se 71 (40-130) IU/L Total Protein 6.9 (6.6-8.7) g/dL Albumin 4.2 (3.5-5.2) g/dL Globulin 2.7 (1.3-4.6) g/dL Urine Color (Yellow) Urine Appearance (CLEAR) Urine pH (5-7) Ur Specific Gravit y (1.005-1.030) Urine Protein (Negative) Urine Glucose (UA) (Normal) Urine Ketones (Negative) Urine Blood (Negative) Urine Nitrate (Negative) Urine Bilirubin (Negative) Prot Sulfosalicyli c Acd (Negative) Urine Urobilinogen (Negative) mg/dL Ur Leukocyte Mary ase (Negative) Urine RBC (0-2) /hpf Urine WBC (0-5) /hpf Ur Squamous Epith Cells (0-5) /hpf Amorphous Sediment /hpf Urine Bacteria (NONE) /hpf Urine Mucus /hpf Salicylates < 0.3 L (3-10) mg/dL Urine Opiates Scre en (Negative) ng/mL Acetaminophen < 5.0 L (10-30) ug/mL Ur Barbiturates Sc reen (Negative) ng/mL Ur Phencyclidine S crn (Negative) ng/mL Ur Amphetamines Sc reen (Negative) ng/mL U Benzodiazepines Scrn (Negative) ng/mL Urine Cocaine Scre en (Negative) ng/mL U Marijuana (THC) Screen (Negative) ng/mL Ethyl Alcohol < 10 (0-10) mg/dL SARS-CoV-2 Ag (Rap id) Negative (Negative) Discharge Plan Discharge Patient Disposition: Admitted As Inpatient Admit Provider: Seng Snowden Clinical Impression: Suicidal ideation, Major depressive disorder, recurrent severe without psychotic features, Bereavement Condition: Stable 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
[2020-09-08 21:48] VITALS: BP 108/64; PULSE 73; RESP 16; TEMP 37.1; O2SAT 98
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
[2020-09-09 06:00] VITALS: BP 103/56; PULSE 69; RESP 16; TEMP 36.7; O2SAT 95
[2020-09-09 14:00] VITALS: BP 137/94; PULSE 68; RESP 17; TEMP 36.7; O2SAT 96
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
[2020-09-09] MEDS: nicotine 2 mg Gum BUCCAL (15:24)
[2020-09-09] MEDS: acetaminophen 325 mg Tablet 650 MG PO (16:30)
--- NOTE | 2020-09-09 16:54 | PC.RESP ---
Smoking Cessation information sent to patient.
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
[2020-09-09] MEDS: hyDROXYzine 25 mg Capsule 50 MG PO (17:20)
== END 2020-09-09 17:39 | disposition left against medical advice (07) | DRG 885 ==
LOC: ER 12:09 → NP 14:30
PROVIDERS: Admitting Provider Psychiatry & Neurology Psychiatry; Emergency Provider Family Medicine; Visit Provider Psychiatry & Neurology Psychiatry
DX: F33.2 Major depressive disorder, recurrent severe without psychotic features (principal); R45.851 Suicidal ideations; F41.9 Anxiety disorder, unspecified; Z63.4 Disappearance and death of family member; F12.90 Cannabis use, unspecified, uncomplicated; Z53.29 Procedure and treatment not carried out because of patient's decision for other reasons; Z76.5 Malingerer [conscious simulation]
CPT/HCPCS: 80053; 80306; 80307; 81001; 85025; 87426; 99285

== ENCOUNTER 2023-12-28 14:05 | Inpatient (IN) | payer SELFPAY ==
[2023-12-28 14:12] VITALS: BP 139/79; PULSE 87; RESP 18; TEMP 36.7; O2SAT 100
--- NOTE | 2023-12-28 14:13 | ED.C_ITS ---
Documented by User: ZULEMA Hinojosa 12/28/23 16:55 HPI - Psych 2 General: Chief Complaint: Psychiatric Symptoms Stated Complaint: Stress, No Meds Time Seen by Provider: 12/28/23 14:08 Source: patient Mode of arrival: ambulatory Limitations: no limitations History of Present Illness: Patient is a 43-year-old male presents to ED today after he was brought by EMS for mental health evaluation. He was reportedly walking on the side of the road when he was picked up. Patient states he is originally from [place]. He states he has been working in [place]. He states the residence that he normally resides at in [place] a lot of bad things were going on and I could not stay there . He states he left all of his psychiatric meds accidentally back in [place] and has been out of these over the past 5 days. He states he is feeling very depressed and hopeless. He is having thoughts of suicide. He states he is normally very impulsive and states I need help or else I do not know what I would do . MD complaint: suicidal ideation and feels depressed Onset (ago): day(s) Duration: constant History of same: Yes Relieving factors: none Exacerbating factors: other (out of psych meds) Context: not taking psychiatric medications Associated psychiatric symptoms: depression and suicidal ideation Associated symptoms: Reports depression and suicidal ideation; Deny auditory hallucinations, visual hallucinations or homicidal ideation Treatments prior to arrival: none If self harm: admits thoughts of self harm Related Data Home Medications Medication Instructions Recorded Confirmed citalopram 10 mg tablet 10 mg PO DAILY 12/28/23 12/28/23 prazosin 2 mg capsule 2 mg PO BEDTIME 12/28/23 12/28/23 Previous Rx's Medication Instructions Recorded clonazepam 0.5 mg tablet 0.5 mg PO BID PRN Anxiety 30 days 10/02/19 #60 tabs divalproex 500 mg tablet,extended 500 mg PO BEDTIME 30 days #30 tabs 10/02/19 release 24 hr trazodone 50 mg tablet 50 mg PO BEDTIME PRN Sleep 30 days 10/02/19 #30 tabs Allergies Allergy/AdvReac Type Severity Reaction Status Date / Time codeine Allergy Unknown Verified 09/27/19 11:33 strawberry Allergy Unknown Verified 09/27/19 11:33 Review of Systems 2 Const: Denies: fever(s) or chills Card: Denies: chest pain, palpitations, lightheadedness or syncope Resp: Denies: dyspnea GI: Denies: abdominal pain, nausea, vomiting or diarrhea Skin/Breast: Denies: rash Neuro: Denies: headache(s) Psych: Reports: anxiety, depression, hopelessness and suicidal ideation; Denies: visual hallucinations, auditory hallucinations or homicidal ideation PFSH ED 2 PFSH: Social History Smoking and tobacco/nicotine status: current some day tobacco/nicotine user Physical Exam 2 Const: COMMON NORMALS: no acute distress, patient oriented x3, alert and well nourished GENERAL APPEARANCE: cooperative and anxious Resp: COMMON NORMALS: normal respiratory effort and clear to auscultation bilaterally AUSCULTATION: clear to auscultation bilaterally Cardio: COMMON NORMALS: regular rate and regular rhythm RATE: regular rate RHYTHM: regular rhythm Neuro: COMMON NORMALS: patient oriented x3 SENSORIUM/ORIENTATION: Yes alert Psych: COMMON NORMALS: mental status grossly normal, Normal thought process present, cooperative, speech normal, activity/motor behavior normal, denies hallucinations and denies homicidal ideation APPEARANCE: Yes grossly normal ATTITUDE: Yes calm ACTIVITY/MOTOR BEHAVIOR: Yes appropriate eye contact and No psychomotor agitation SPEECH: Yes normal speech MOOD & AFFECT: Yes depressed mood, Yes sad and Yes tearful THOUGHT PROCESS: Normal thought process present ATTENTION/CONCENTRATION: Yes attention grossly intact and Yes concentration grossly intact MEMORY/COGNITION: Yes memory grossly intact and Yes cognition grossly intact INSIGHT: Fair insight present (Psych) J UDGEMENT: Fair judgement present (Psych) Course 2 Vital Signs: Vital signs: Vital Signs Temperature 98.1 F 12/28/23 14:12 Pulse Rate 72 12/28/23 16:25 Respiratory Rate 20 H 12/28/23 16:25 Blood Pressure 131/81 12/28/23 16:25 Pulse Oximetry 97 12/28/23 16:25 Oxygen Delivery Me thod Room Air 12/28/23 16:25 MDM - Psych Lab Data 12/28/23 14:41 12/28/23 14:41 Laboratory Results WBC 10.02 10^3/uL (3.29-11.43) 12/28/23 14:41 RBC 4.52 10^6/uL (3.85-5.65) 12/28/23 14:41 Hgb 13.50 g/dL (11.27-16.99) 12/28/23 14:41 Hct 39.6 % (37-53) 12/28/23 14:41 MCV 87.6 fl (82-101) 12/28/23 14:41 MCH 29.9 pg (27-33) 12/28/23 14:41 MCHC 34.1 g/dL (30-55) 12/28/23 14:41 RDW 12.6 % (12.1-15.1) 12/28/23 14:41 Plt Count 343 10^3/cmm (157-399) 12/28/23 14:41 MPV 8.7 fL (7.4-10.4) 12/28/23 14:41 Neut % (Auto) 62.6 % 12/28/23 14:41 Lymph % (Auto) 25.3 % 12/28/23 14:41 [place] % (Auto) 8.1 % 12/28/23 14:41 Eos % (Auto) 2.7 % 12/28/23 14:41 Baso % (Auto) 1.0 % 12/28/23 14:41 Neut # (Auto) 6.27 10^3/uL (1.8-7.7) 12/28/23 14:41 Lymph # (Auto) 2.5 10^3/uL (0.8-4.8) 12/28/23 14:41 [place] # (Auto) 0.8 10^3/uL (0.2-0.9) 12/28/23 14:41 Eos # (Auto) 0.3 10^3/uL (0.0-0.8) 12/28/23 14:41 Baso # (Auto) 0.1 10^3/uL (0.0-0.1) 12/28/23 14:41 Nucleated RBC % (auto) 0 % 12/28/23 14:41 Nucleated RBCs # 0.0 /100WBC 12/28/23 14:41 Sodium 139 mmol/L (136-145) 12/28/23 14:41 Potassium 4.0 mmol/L (3.5-5.1) 12/28/23 14:41 Chloride 100 mmol/L (98-107) 12/28/23 14:41 Carbon Dioxide 30 mmol/L (22-29) H 12/28/23 14:41 Anion Gap 13.0 (5-19) 12/28/23 14:41 BUN 15 mg/dL (6-20) 12/28/23 14:41 Creatinine 1.0 mg/dL (0.7-1.2) 12/28/23 14:41 GFR Calculation 80.8 mL/min (90-130) L 12/28/23 14:41 Glucose 89 mg/dL (65-115) 12/28/23 14:41 Calculated Osmolality 288 mOsm/kg (285-295) 12/28/23 14:41 Calcium 9.0 mg/dL (8.5-10.5) 12/28/23 14:41 Total Bilirubin 0.4 mg/dL (0.15-1.2) 12/28/23 14:41 AST 30 U/L (0-40) 12/28/23 14:41 ALT 27 U/L (0-41) 12/28/23 14:41 Alkaline Phosphatase 77 U/L (40-130) 12/28/23 14:41 Total Protein 7.0 g/dL (6.6-8.7) 12/28/23 14:41 Albumin 4.4 g/dL (3.5-5.2) 12/28/23 14:41 Globulin 2.6 g/dL (1.3-4.6) 12/28/23 14:41 TSH 1.20 uIU/mL (0.27-4.20) 12/28/23 14:41 Salicylates < 0.3 mg/dL (3-10) L 12/28/23 14:41 Urine Opiates Screen Negative ng/mL (Negative) 12/28/23 14:55 Acetaminophen < 5.0 ug/mL (10-30) L 12/28/23 14:41 Ur Barbiturates Screen Negative ng/mL (Negative) 12/28/23 14:55 Ur Phencyclidine Scrn Negative ng/mL (Negative) 12/28/23 14:55 Ur Amphetamines Screen Negative ng/mL (Negative) 12/28/23 14:55 U Benzodiazepines Scrn Negative ng/mL (Negative) 12/28/23 14:55 Urine Cocaine Screen Negative ng/mL (Negative) 12/28/23 14:55 U Marijuana (THC) Screen Positive ng/mL (Negative) H 12/28/23 14:55 Ethyl Alcohol < 10 mg/dL (0-10) 12/28/23 14:41 No radiology studies performed this visit Discharge Plan Discharge Patient Disposition: Admitted As Inpatient Clinical Impression: Suicidal ideation Condition: Stable Prescriptions: No Action trazodone 50 mg Tablet 50 mg PO BEDTIME PRN (Reason: Sleep) 30 Days Qty: 30 1RF clonazepam 0.5 mg Tablet 0.5 mg PO BID PRN (Reason: Anxiety) 30 Days Qty: 60 1RF divalproex 500 mg Tablet Extended Release 24 Hr 500 mg PO BEDTIME 30 Days Qty: 30 1RF citalopram 10 mg tablet 10 mg PO DAILY prazosin 2 mg capsule 2 mg PO BEDTIME Coding Level of Care Code ED Shrimp Header for Chg Fwd Documented by User: Elpidio Dominguez MD 12/28/23 17:20 HPI - Psych 2 General: Chief Complaint: Psychiatric Symptoms Stated Complaint: Stress, No Meds Time Seen by Provider: 12/28/23 14:08 Related Data Home Medications Medication Instructions Recorded Confirmed citalopram 10 mg tablet 10 mg PO DAILY 12/28/23 12/28/23 prazosin 2 mg capsule 2 mg PO BEDTIME 12/28/23 12/28/23 Previous Rx's Medication Instructions Recorded clonazepam 0.5 mg tablet 0.5 mg PO BID PRN Anxiety 30 days 10/02/19 #60 tabs divalproex 500 mg tablet,extended 500 mg PO BEDTIME 30 days #30 tabs 10/02/19 release 24 hr trazodone 50 mg tablet 50 mg PO BEDTIME PRN Sleep 30 days 10/02/19 #30 tabs Allergies Allergy/AdvReac Type Severity Reaction Status Date / Time codeine Allergy Unknown Verified 09/27/19 11:33 strawberry Allergy Unknown Verified 09/27/19 11:33 PFS ED 2 PFSH: Social History Smoking and tobacco/nicotine status: current some day tobacco/nicotine user Course 2 Vital Signs: Vital signs: Vital Signs Temperature 98.1 F 12/28/23 14:12 Pulse Rate 72 12/28/23 16:25 Respiratory Rate 20 H 12/28/23 16:25 Blood Pressure 131/81 12/28/23 16:25 Pulse Oximetry 97 12/28/23 16:25 Oxygen Delivery Me thod Room Air 12/28/23 16:25 MDM - Psych Medical Decision Making Patient presents here with suicidal ideations he is medically cleared and speak to psychiatrist will admit at this time. Medical Records I reviewed the patient's medical records. Lab Data I reviewed the patient's lab results. 12/28/23 14:41 12/28/23 14:41 Laboratory Results WBC 10.02 10^3/uL (3.29-11.43) 12/28/23 14:41 RBC 4.52 10^6/uL (3.85-5.65) 12/28/23 14:41 Hgb 13.50 g/dL (11.27-16.99) 12/28/23 14:41 Hct 39.6 % (37-53) 12/28/23 14:41 MCV 87.6 fl (82-101) 12/28/23 14:41 MCH 29.9 pg (27-33) 12/28/23 14:41 MCHC 34.1 g/dL (30-55) 12/28/23 14:41 RDW 12.6 % (12.1-15.1) 12/28/23 14:41 Plt Count 343 10^3/cmm (157-399) 12/28/23 14:41 MPV 8.7 fL (7.4-10.4) 12/28/23 14:41 Neut % (Auto) 62.6 % 12/28/23 14:41 Lymph % (Auto) 25.3 % 12/28/23 14:41 [place] % (Auto) 8.1 % 12/28/23 14:41 Eos % (Auto) 2.7 % 12/28/23 14:41 Baso % (Auto) 1.0 % 12/28/23 14:41 Neut # (Auto) 6.27 10^3/uL (1.8-7.7) 12/28/23 14:41 Lymph # (Auto) 2.5 10^3/uL (0.8-4.8) 12/28/23 14:41 [place] # (Auto) 0.8 10^3/uL (0.2-0.9) 12/28/23 14:41 Eos # (Auto) 0.3 10^3/uL (0.0-0.8) 12/28/23 14:41 Baso # (Auto) 0.1 10^3/uL (0.0-0.1) 12/28/23 14:41 Nucleated RBC % (auto) 0 % 12/28/23 14:41 Nucleated RBCs # 0.0 /100WBC 12/28/23 14:41 Sodium 139 mmol/L (136-145) 12/28/23 14:41 Potassium 4.0 mmol/L (3.5-5.1) 12/28/23 14:41 Chloride 100 mmol/L (98-107) 12/28/23 14:41 Carbon Dioxide 30 mmol/L (22-29) H 12/28/23 14:41 Anion Gap 13.0 (5-19) 12/28/23 14:41 BUN 15 mg/dL (6-20) 12/28/23 14:41 Creatinine 1.0 mg/dL (0.7-1.2) 12/28/23 14:41 GFR Calculation 80.8 mL/min (90-130) L 12/28/23 14:41 Glucose 89 mg/dL (65-115) 12/28/23 14:41 Calculated Osmolality 288 mOsm/kg (285-295) 12/28/23 14:41 Calcium 9.0 mg/dL (8.5-10.5) 12/28/23 14:41 Total Bilirubin 0.4 mg/dL (0.15-1.2) 12/28/23 14:41 AST 30 U/L (0-40) 12/28/23 14:41 ALT 27 U/L (0-41) 12/28/23 14:41 Alkaline Phosphatase 77 U/L (40-130) 12/28/23 14:41 Total Protein 7.0 g/dL (6.6-8.7) 12/28/23 14:41 Albumin 4.4 g/dL (3.5-5.2) 12/28/23 14:41 Globulin 2.6 g/dL (1.3-4.6) 12/28/23 14:41 TSH 1.20 uIU/mL (0.27-4.20) 12/28/23 14:41 Salicylates < 0.3 mg/dL (3-10) L 12/28/23 14:41 Urine Opiates Screen Negative ng/mL (Negative) 12/28/23 14:55 Acetaminophen < 5.0 ug/mL (10-30) L 12/28/23 14:41 Ur Barbiturates Screen Negative ng/mL (Negative) 12/28/23 14:55 Ur Phencyclidine Scrn Negative ng/mL (Negative) 12/28/23 14:55 Ur Amphetamines Screen Negative ng/mL (Negative) 12/28/23 14:55 U Benzodiazepines Scrn Negative ng/mL (Negative) 12/28/23 14:55 Urine Cocaine Screen Negative ng/mL (Negative) 12/28/23 14:55 U Marijuana (THC) Screen Positive ng/mL (Negative) H 12/28/23 14:55 Ethyl Alcohol < 10 mg/dL (0-10) 12/28/23 14:41 Discharge Plan Discharge Patient Disposition: Admitted As Inpatient Clinical Impression: Suicidal ideation Condition: Stable Prescriptions: No Action trazodone 50 mg Tablet 50 mg PO BEDTIME PRN (Reason: Sleep) 30 Days Qty: 30 1RF clonazepam 0.5 mg Tablet 0.5 mg PO BID PRN (Reason: Anxiety) 30 Days Qty: 60 1RF divalproex 500 mg Tablet Extended Release 24 Hr 500 mg PO BEDTIME 30 Days Qty: 30 1RF citalopram 10 mg tablet 10 mg PO DAILY prazosin 2 mg capsule 2 mg PO BEDTIME Coding Level of Care Code ED Shrimp Header for Lenore Coleman
[2023-12-28] MEDS: LORazepam 2 mg/mL INJ 1 mL 1 MG IM (14:46)
--- NOTE | 2023-12-28 14:47 | PC.PHAR ---
Pt states he has been without medications since last week. He states it's probably why he is here.
[2023-12-28 14:49] LABS: Basophils # 0.1 10^3/uL (0.0-0.1); Eosinophils # 0.3 10^3/uL (0.0-0.8); Eosinophils % 2.7 %; Hematocrit 39.6 % (37-53); Lymphocytes # 2.5 10^3/uL (0.8-4.8); Lymphocytes % 25.3 %; Mean Corpuscular HGB Conc 34.1 g/dL (30-55); Mean Corpuscular Hemoglobin 29.9 pg (27-33); Mean Corpuscular Volume 87.6 fl (82-101); Mean Platelet Volume 8.7 fL (7.4-10.4); Monocytes # 0.8 10^3/uL (0.2-0.9); Monocytes % 8.1 %; Neutrophils # 6.27 10^3/uL (1.8-7.7); Neutrophils % 62.6 %; Nucleated Red Blood Cells % 0 %; Platelet Count 343 10^3/cmm (157-399); Red Blood Count 4.52 10^6/uL (3.85-5.65); Red Cell Distribution Width 12.6 % (12.1-15.1); White Blood Count 10.02 10^3/uL (3.29-11.43)
[2023-12-28 15:08] LABS: Alanine Aminotransferase 27 U/L (0-41); Albumin Level 4.4 g/dL (3.5-5.2); Alkaline Phosphatase 77 U/L (40-130); Aspartate Amino Transferase 30 U/L (0-40); Blood Urea Nitrogen 15 mg/dL (6-20); Carbon Dioxide 30 mmol/L (22-29); Chloride 100 mmol/L (98-107); Globulin 2.6 g/dL (1.3-4.6); Glomerular Filtration Rate 80.8 mL/min (90-130); Glucose 89 mg/dL (65-115); Osmolality Calculated 288 mOsm/kg (285-295); Sodium 139 mmol/L (136-145); Total Bilirubin 0.4 mg/dL (0.15-1.2)
[2023-12-28 15:09] LABS: Acetaminophen < 5.0 ug/mL (10-30); Alcohol Level < 10 mg/dL (0-10); Salicylate < 0.3 mg/dL (3-10)
[2023-12-28 15:19] LABS: Amphetamines Screen Urine Negative (Negative); Barbiturates Screen Urine Negative (Negative); Benzodiazepines Screen Urine Negative (Negative); Cocaine Screen Urine Negative (Negative); Opiate Screen Urine Negative (Negative); PCP Screen Urine Negative (Negative); THC Screen Urine Positive (Negative)
--- NOTE | 2023-12-28 15:32 | ECG_ITS ---
[facility] Test Date: 2023-12-28 Pat Name: Paco Cota Department: Room: Gender: Male Network Consultant: : 1980 Requested By: Fawn Watt Order Number: [id number] Jorge Luis MD: Isidro Dennis M.D. Measurements Intervals [place] Rate: 59 P: 39 AR: 211 QRS: 57 QRSD: 88 T: 1 QT: 415 QTc: 412 Interpretive Statements SINUS BRADYCARDIA WITH FIRST DEGREE AV BLOCK No previous ECG available for comparison Electronically Signed On 01-03-2024 19:36:32 [employer] by Isidro Dennis M.D. [email or web address]
[2023-12-28 16:25] VITALS: BP 131/81; PULSE 72; RESP 20; O2SAT 97
[2023-12-28] MEDS: diphenhydrAMINE 50 mg/mL SDV 1mL IM (16:34)
[2023-12-28 17:25] LABS: Covid PCR NEGATIVE (Negative); Influenza A NEGATIVE (Negative); Influenza B NEGATIVE (Negative); Respiratory Syncytial Virus Ce NEGATIVE (Negative)
--- NOTE | 2023-12-28 17:38 | PC.NURSE ---
pt report called to [facility].
[2023-12-28 17:56] VITALS: BP 134/80; PULSE 76; O2SAT 97
--- NOTE | 2023-12-28 18:13 | PC.NURSE ---
96 hr rights reviewed with patient @1180. All education reviewed with patient Pt verbalized concerns about leaving his home unattended while admitted, but verbalized understanding to 96 hr hold. Patient copy left @bedside with patient. No verbalized needs at this time.
[2023-12-28 19:02] LABS: Bilirubin Urine Negative (Negative); Blood Urine Negative (Negative); Glucose Urine UA Negative (Normal); Ketones Urine Negative (Negative); Leukocyte Esterase Urine Negative (Negative); Nitrate Urine Negative (Negative); Protein Urine Negative (Negative); Specific Gravity, Urine 1.016 (1.005-1.030); Urine Appearance Cloudy (CLEAR); Urine Color Yellow (Yellow)
[2023-12-28 19:07] LABS: Add Urine Microscopic? YES; Bacteria Urine None Seen /hpf; RBC Urine 0-2 /hpf (0-2); Squamous Epithelial Cell Urine 0-5 /hpf (0-5); WBC Urine 0-5 /hpf (0-5)
[2023-12-28 19:20] VITALS: BMI 29.2
[2023-12-28 22:00] VITALS: BP 131/75; PULSE 64; RESP 18; TEMP 36.4; O2SAT 97
[2023-12-29] MEDS: OLANZapine 5 mg ODT PO (04:48)
[2023-12-29] MEDS: LORazepam 2 mg/mL INJ 1 mL IM ×2 (05:45→16:02)
[2023-12-29 05:51] VITALS: BP 136/93; PULSE 69; RESP 16; TEMP 36.5; O2SAT 97
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
[2023-12-29 12:50] VITALS: BP 132/59; PULSE 64; RESP 16; TEMP 36.5; O2SAT 99
[2023-12-29 14:00] VITALS: BP 141/74; PULSE 76; RESP 18; TEMP 36.4; O2SAT 98
[2023-12-29] MEDS: diphenhydrAMINE 50 mg/mL SDV 1mL IM (16:02)
--- NOTE | 2023-12-29 19:12 | PC.NURSE ---
Shift SUmmary: Uneventful shift. Patient rested in bed for most of the day, was up occaisonally for the bathroom and meals. Very pleasant and cooperative throughout the day. DId have some anxiety for which ativan was given.
[2023-12-29 22:00] VITALS: BP 103/72; PULSE 76; RESP 18; TEMP 36.5; O2SAT 100
[2023-12-30 04:56] VITALS: BP 146/86; PULSE 62; RESP 16; TEMP 36.8; O2SAT 99
[2023-12-30] MEDS: LORazepam 2 mg/mL INJ 1 mL IM (05:15)
[2023-12-30] MEDS: citalopram 20 mg Tablet 10 MG PO (08:52)
[2023-12-30] MEDS: CLONazepam 0.5 mg Tablet PO ×2 (08:54→17:46)
[2023-12-30 10:00] VITALS: BMI 28.9
[2023-12-30 14:00] VITALS: BP 112/84; PULSE 89; RESP 18; TEMP 36.8; O2SAT 99
--- NOTE | 2023-12-30 14:27 | PC.NURSE ---
report called and transfered to npu at this time with security
--- NOTE | 2023-12-30 15:12 | PC.NURSE ---
Patient arrived to the unit from ICU at 1428. Patient cooperative and calm. During skin assessment, no contraband was uncovered. Patient said that he does not feel suicidal or homicidal, but that his main issue is depression and anxiety. 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 Patient denies drugs use.
--- NOTE | 2023-12-30 17:17 | P.NPUPN_ITS ---
Subjective NPU 2 Subjective: Patient presented today reporting that he is feeling better about his situation overall. He reports that he is feeling that he knows how he is going to manage his issues going forward. He was transferred to the NPU from the ICU where he was for bed availability reasons. He is working with the social work team for discharge planning etc. He denied any issues with restarting his medications. He denied any side effects to the medications. Mental Status Exam 2 MSE Comments: This is a well-nourished, well-developed, white male, in hospital gown with limited grooming, and eye contact. There were no abnormal movements except for mild psychomotor agitation. Cooperative with exam in mild to moderate distress. Speech was slightly increased rate and normal volume. Mood described as struggling and stressed out; affect congruent. Thought process, organized. Thought content: patient denied suicidal or homicidal ideations. There were no delusions reported or noted, patient denied any auditory or visual hallucinations. Attention, concentration, and memory appeared intact but were not formally tested. He was alert and oriented times three. Insight and judgment are limited, and impulse control is limited versus impaired. Vitals/I&O/Wt Last Vital Signs Temp 98.2 F 12/30/23 14:00 Pulse 89 12/30/23 14:00 Resp 18 12/30/23 14:00 BP 112/84 12/30/23 14:00 Pulse Ox 99 12/30/23 14:00 O2 Del Method Room Air 12/30/23 14:00 Weight last 48 hrs Weight 94.347 kg Weight 94 kg Data NPU 12/28/23 14:41 12/28/23 14:41 A&P Assessment and plan (1) Major depressive disorder, recurrent severe without psychotic features: (2) Anxiety: (3) Suicidal ideation: (4) Cannabis use disorder: (5) History of methamphetamine use: Plan This is a [age]-year-old white male with a long history of depression, bereavement issues, anxiety and likely malingering in relation to desire for benzodiazepines who had not been seen inpatient for over 3 years and who presents reporting suicidal thoughts, being off of his medication for several days and struggling with possible relapse secondary to an untenable situation he found himself in at his last employer. 1. Continue current medication. 2. Continue every 15 minute checks for safety. 3. Encourage individual, group and milieu therapies. 4. Encourage sober living treatment after discharge at the highest level of care to which he is willing to commit. 5. Obtain collateral information. Involuntary Hold Information 2 96 Hour Hold: 96 Hour Involuntary Admission: Yes 96 Hour Hold Ending Date: 01/03/24 96 Hour Hold Ending Time: 14:37 Other Hold: Hold End Date: 01/03/24 Attestations NPU 2 Medical Necessity Statement*: Inpatient hospitalization is medically necessary and the clinically appropriate intervention at this time. We will monitor/initiate medications and make changes as indicated. Likely length of stay 2-4 days. Coding Level of Care Code Acute Code for g Fwd Diagnoses Major depressive disorder, recurrent severe without psychotic features F33.2 Anxiety F41.9 Suicidal ideation R45.851 Cannabis use disorder F12.90 History of methamphetamine use F15.91
[2023-12-30 19:35] VITALS: BP 98/62; PULSE 88; RESP 18; TEMP 36.9; O2SAT 97
[2023-12-30] MEDS: divalproex ER 500 mg Tablet (24H) PO (21:15)
[2023-12-30 21:54] VITALS: BP 98/62; PULSE 88; RESP 18; TEMP 36.9; O2SAT 98
[2023-12-31 06:00] VITALS: BP 126/84; PULSE 79; RESP 18; TEMP 36.4; O2SAT 98
[2023-12-31] MEDS: OLANZapine 5 mg ODT PO (06:06)
[2023-12-31] MEDS: citalopram 20 mg Tablet 10 MG PO (08:35)
[2023-12-31 10:00] VITALS: BMI 29.0
[2023-12-31] MEDS: CLONazepam 0.5 mg Tablet PO (12:05)
[2023-12-31 13:43] VITALS: BP 84/50; PULSE 68; RESP 16; TEMP 36.6; O2SAT 96
--- NOTE | 2023-12-31 16:48 | P.NPUPN_ITS ---
Subjective NPU 2 Subjective: Patient presented today reporting that he is feeling okay. He reports he feels better and is optimistic about returning to work. He reports he has to get back to work and get his life back on track. He reports that he feels like he will be able to manage his recovery in this environment. However he reports he has a job waiting for him and he is hopeful to discharge. We discussed discharging him in the morning and he denied any side effects to his medication. Mental Status Exam 2 MSE Comments: This is a well-nourished, well-developed, white male, in hospital gown with limited grooming, and eye contact. There were no abnormal movements. Cooperative with exam in mild distress. Speech was slightly increased rate and normal volume. Mood described as feeling better and ready to face challenges.; affect congruent. Thought process, organized. Thought content: patient denied suicidal or homicidal ideations. There were no delusions reported or noted, patient denied any auditory or visual hallucinations. Attention, concentration, and memory appeared intact but were not formally tested. He was alert and oriented times three. Insight and judgment are limited, and impulse control is limited. Vitals/I&O/Wt Last Vital Signs Temp 97.8 F 12/31/23 13:43 Pulse 68 12/31/23 13:43 Resp 16 12/31/23 13:43 BP 84/50 12/31/23 13:43 Pulse Ox 96 12/31/23 13:43 O2 Del Method Room Air 12/31/23 13:43 Weight last 48 hrs Weight 94.347 kg Weight 94 kg Data NPU 12/28/23 14:41 12/28/23 14:41 A&P Assessment and plan (1) Major depressive disorder, recurrent severe without psychotic features: (2) Anxiety: (3) Suicidal ideation: (4) Cannabis use disorder: (5) History of methamphetamine use: Plan This is a [age]-year-old white male with a long history of depression, bereavement issues, anxiety and likely malingering in relation to desire for benzodiazepines who had not been seen inpatient for over 3 years and who presents reporting suicidal thoughts, being off of his medication for several days and struggling with possible relapse secondary to an untenable situation he found himself in at his last employer. 1. Continue current medication. 2. Continue every 15 minute checks for safety. 3. Encourage individual, group and milieu therapies. 4. Encourage sober living treatment after discharge at the highest level of care to which he is willing to commit. 5. Obtain collateral information. Patient reporting a plan to return to [place] where he has a job waiting. Tentative plan to discharge in the morning. Involuntary Hold Information 2 96 Hour Hold: 96 Hour Involuntary Admission: Yes 96 Hour Hold Ending Date: 01/03/24 96 Hour Hold Ending Time: 14:37 Other Hold: Hold End Date: 01/03/24 Attestations NPU 2 Medical Necessity Statement*: Inpatient hospitalization is medically necessary and the clinically appropriate intervention at this time. We will monitor/initiate medications and make changes as indicated. Likely length of stay 1 day. Coding Level of Care Code Acute Code for g Fwd Diagnoses Major depressive disorder, recurrent severe without psychotic features F33.2 Anxiety F41.9 Suicidal ideation R45.851 Cannabis use disorder F12.90 History of methamphetamine use F15.91
[2023-12-31] MEDS: divalproex ER 500 mg Tablet (24H) PO (20:53)
[2023-12-31] MEDS: prazosin 1 mg Capsule 2 MG PO (20:53)
[2023-12-31 20:59] VITALS: BP 125/66; PULSE 89; RESP 17; TEMP 36.4; O2SAT 96
[2024-01-01] MEDS: acetaminophen 325 mg Tablet 650 MG PO (05:33)
[2024-01-01] MEDS: CLONazepam 0.5 mg Tablet PO (05:34)
[2024-01-01 06:00] VITALS: BP 136/88; PULSE 86; RESP 18; TEMP 36.7; O2SAT 96
[2024-01-01] MEDS: citalopram 20 mg Tablet PO (08:52)
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
[2024-01-01 09:26] VITALS: BP 136/88; PULSE 86; RESP 18; TEMP 36.7; O2SAT 96
== END 2024-01-01 10:00 | disposition home or self-care (01) | DRG 885 ==
LOC: ER 17:20 → ICU 17:25 → NP 12-30 14:34
PROVIDERS: Physician Assistant; Admitting Provider Psychiatry & Neurology Psychiatry; Emergency Provider Emergency Medicine; Visit Provider Psychiatry & Neurology Psychiatry
DX: F33.2 Major depressive disorder, recurrent severe without psychotic features (principal); R45.851 Suicidal ideations; F41.9 Anxiety disorder, unspecified; F12.90 Cannabis use, unspecified, uncomplicated; F15.91 Other stimulant use, unspecified, in remission; Z79.891 Long term (current) use of opiate analgesic
CPT/HCPCS: 0241U; 36415; 80053; 80306; 80307; 81001; 84443; 85025; 93005; 96372; 97150; 97165; 99285; J1200; J2060